=== PATIENT | female | born 1975 | race Caucasian/White ===

== ENCOUNTER 2017-04-29 13:13 | Observation (INO) | payer OTHER ==
[2017-04-29] MEDS ORDERED: NS 0.9% 1000 ML* 1,000 ML IV ONE (15:28)
[2017-04-29] MEDS ORDERED: Ondansetron INJ* 2 MG/ML VIAL IV ONE ×2 (15:28→19:16)
[2017-04-29] MEDS ORDERED: HYDROmorphone INJ* 1 MG/ML CARPUJECT SYRINGE IV ONE (15:28)
[2017-04-29 15:39] LABS: Hematocrit 40 % (35-47); Hemoglobin 13.3 g/dl (12.0-16.0); Mean Corpuscular HGB Conc 33 g/dl (31-36); Mean Corpuscular Hemoglobin 29 pg (27-31); Mean Corpuscular Volume 87 fL (80-97); Mean Platelet Volume 9 um3 (7.4-10.4); Red Blood Count 4.63 10^6/ul (4.0-5.4); Red Cell Distribution Width 19 % (10.5-15); White Blood Count 8.6 10^3/ul (3.5-10.8)
[2017-04-29 15:41] LABS: Urine Bilirubin Negative (Negative); Urine Glucose Negative (Negative); Urine Nitrite Negative (Negative)
[2017-04-29] MEDS ORDERED: HYDROmorphone INJ* 2 MG/ML CARPUJECT SYRINGE ONE (15:52)
[2017-04-29 15:54] LABS: Albumin 4.1 g/dL (3.2-5.2); BUN/Creatinine Ratio 16.9 (8-20); C Reactive Protein 3.38 mg/L (< 5.00); Calcium 9.8 mg/dL (8.6-10.3); EGFR African American 117.3 (>60); EGFR Non-African American 91.2 (>60); Globulin 2.9 g/dL (2-4); Potassium 3.6 mmol/L (3.5-5.0); Total Bilirubin 0.6 mg/dL (0.2-1.0)
--- NOTE | 2017-04-29 17:23 | RAD ---
CLINICAL HISTORY: Right flank pain. Relevant surgical history includes hysterectomy and Destini fundoplication. COMPARISON: MRI of the abdomen January 30, 2017 TECHNIQUE: Noncontrast CT examination of the abdomen and pelvis from the lung bases through the initial tuberosities. FINDINGS: VISUALIZED LUNG BASES: The visualized lung bases are grossly clear. There is no pleural effusion. ABDOMEN AND PELVIS: Evaluation of the solid organs and vasculature is limited without intravenous contrast. At the left lobe of the liver there is a 4.8 x 9.4 cm low-density mass that corresponds in location to the enhancing lesion seen on the previous MRI that measured 6.9 x 10 cm. In the right lobe of the liver there is a 4.4 x 3.3 cm mass corresponding to a lesion measuring 6.2 x 3.5 cm on the previous CT examination. In the left lobe of the liver there is a 4 mm hypodense focus corresponding to a fluid density cyst on the previous MRI. The liver is otherwise homogenous in attenuation and the surface is smooth. The spleen, pancreas and adrenal glands are grossly normal in appearance. The gallbladder is normal. The kidneys are normal in appearance without focal mass, calcification or signs of hydronephrosis. Evaluation of the gastrointestinal tract is limited without oral contrast. The appendix is likely identified in the right lower quadrant measuring just under 5 mm in diameter (sagittal image 58 and axial image 102). The small and large bowel are not distended. The gas and stool-filled colon does not exhibit any focal abnormalities. There is no gross retroperitoneal or mesenteric lymphadenopathy. Uterus is surgically absent. The abdominal aorta and iliac arteries are normal in course and diameter. There are no sinister bone lesions. IMPRESSION: 1. There are no renal calculi or signs of hydronephrosis. 2. Low-density metastases in the bilateral lobes of the liver are smaller when compared to the January 30, 2017 MRI of the abdomen.
[2017-04-29] MEDS ORDERED: fentaNYL* 50 MCG/ML 2 ML VIAL (100 MCG VIAL) IV SLOW PU ONE (17:42)
[2017-04-29] MEDS ORDERED: Iohexol 350* (CONTRAST) 500 ML MDV IV ONE (17:50)
--- NOTE | 2017-04-29 19:25 | RAD ---
INDICATION: Right flank pain COMPARISON: CT of the chest January 06, 2017 TECHNIQUE: Axial source images were acquired following the administration of intravenously and utilizing CT angiographic technique. Coronal and sagittal reconstructed images were constructed and reviewed. FINDINGS: There is a left internal jugular vein Mediport with the tip terminating at the right atrium. There is a nonobstructing thrombotic filling defect in the lateral basal segmental artery of the left lower lobe (axial image 85 of 220 and coronal image 54). The remaining pulmonary arterial branches are adequately patent. There are no focal infiltrates or effusions. There are no pulmonary parenchymal masses. The heart is normal in size. There is no evidence of pericardial effusion. There is no evidence of aortic aneurysm or dissection. There is no mediastinal, hilar, or axillary lymphadenopathy. The visualized osseous structures appear normal. Again seen are low-density lesions in the left and right lobe smaller when compared to the MRI of the abdomen dated January 30, 2017. IMPRESSION: 1. There is a small nonocclusive pulmonary embolus in the lateral basal segment of the left lower lobe pulmonary artery. 2. Additional chronic findings described in the body the report.
[2017-04-29] MEDS ORDERED: LORazepam INJ* 2 MG/ML 1 ML VIAL IV PUSH ONE (20:04)
--- NOTE | 2017-04-29 20:09 | ED ---
Amanda Hillman Rebecca, scribed for Nora Andujar MD on 04/29/17 at 1523 . Abdominal Pain/Female - HPI Summary HPI Summary: Pt is a 42 y/o F who presents to ED c/o right flank pain for 2 days. Pt had an MRI with contrast done in [place] at 1500 and pain began immediately after the MRI, worsening that night. Pain is currently moderate, ranked 4/10. Sx aggravated by deep breaths and movement, worsening the pain to 10/10, alleviated slightly by [place]. Denies dysuria. Pt currently has stage 4 liver and colon CA which was diagnosed on January 05 and she completed chemotherapy on April 04 and is scheduled to have surgery on May 26. PMHx kidney stones which was small and she did not have similar sx with that. Previously experienced similar pain after chemotherapy Tx which would resolve shortly with Tylenol. - History of Current Complaint Chief Complaint: EDFlankPain Stated Complaint: RT FLANK PAIN/CHEMO PT Time Seen by Provider: 04/29/17 15:09 Hx Obtained From: Patient Onset/Duration: Still Present Severity Currently: Moderate Pain Intensity: 4 Pain Scale Used: 0-10 Numeric Location: Flank - Right Aggravating Factor(s): Movement, Deep Breaths Alleviating Factor(s): Other: - [place] - slightly Associated Signs and Symptoms: Positive: Negative. Negative: Urinary Symptoms Allergies/Adverse Reactions: Allergies Allergy/AdvReac Type Severity Reaction Status Date / Time Nitrofurantoin Allergy Severe Palpitation Verified 01/30/17 12:12 [From Macrobid] s Topiramate [From Topamax] Allergy Severe Altered Verified 01/30/17 12:12 Mental Status Butorphanol [From Stadol] Allergy Intermediate Hallucinati Verified 01/30/17 12: 12 ons Cetirizine [From Zyrtec] Allergy Intermediate See Comment Verified 01/30/17 12: 12 Ketorolac Tromethamine Allergy Intermediate Difficulty Verified 01/30/17 12:12 [From Toradol] Breathing Oxycodone [From Percocet] Allergy Intermediate Difficulty Verified 01/30/17 12: 12 Breathing Acetaminophen [From Percocet] AdvReac Unknown See Comment Verified 01/30/17 12: 12 control Allergy Intermediate Difficulty Uncoded 01/30/17 12:12 Breathing PMH/Surg Hx/FS Hx/Imm Hx Cardiovascular History: Denies: Hx Pacemaker/ICD Sensory History: Denies: Hx Hearing Aid Psychiatric History: Denies: Hx Panic Disorder - Cancer History Cancer Type, Location and Year: Stage 4 Liver and Colon CA Hx Chemotherapy: Yes - Completed on April 04 - Surgical History Surgery Procedure, Year, and Place: [id number],2x c-sect,01/05/17-nadya findoplication w/biosyn suture-cleared by ,ganglion cyst r foot Infectious Disease History: No Infectious Disease History: Denies: Traveled Outside the [place] in Last 30 Days - Family History Known Family History: Positive: Hypertension, Other - NEGATIVE: Colon CA - Social History Lives: With Family Alcohol Use: None Substance Use Type: Reports: None Smoking Status (MU): Never Smoked Tobacco Review of Systems Negative: Fever Positive: flank pain - Right. Negative: dysuria All Other Systems Reviewed And Are Negative: Yes Physical Exam - Summary Physical Exam Summary: General: Well appearing, moderate pain distress Skin: Warm, Skin Color Reflects Adequate Perfusion, Dry Eyes: EOMI, [place] ENT: Pharynx normal, TMs normal Neck: Supple, nontender Respiratory: CTA, breath sounds present, no rhonchi, no wheezes, no rales Cardiovascular: RRR, no murmur, no rub, no gallop, Abdomen: Soft, nontender, Non-distended, no guarding, no rebound Bowel: Present Musculoskeletal: [place], No edema, CVA tenderness Neuro: Sensory/motor intact, A&Ox3, CN intact 2-12 Psych: Affect/mood appropriate Triage Information Reviewed: Yes Vital Signs On Initial Exam: Initial Vitals Temp Pulse Resp BP Pulse Ox 97.8 F 78 17 131/98 100 04/29/17 13:25 04/29/17 13:25 04/29/17 13:25 04/29/17 13:25 04/29/17 13:25 Vital Signs Reviewed: Yes Diagnostics - Vital Signs Vital Signs Temp Pulse Resp BP Pulse Ox 04/29/17 13:25 97.8 F 78 17 131/98 100 - Laboratory Lab Results: Lab Results 04/29/17 04/29/17 04/29/17 Range/Units 15:30 15:30 15:30 WBC 8.6 (3.5-10.8) 10^3/ul RBC 4.63 (4.0-5.4) 10^6/ul Hgb 13.3 (12.0-16.0) g/dl Hct 40 (35-47) % MCV 87 (80-97) fL MCH 29 (27-31) pg MCHC 33 (31-36) g/dl RDW 19 H (10.5-15) % Plt Count 167 (150-450) 10^3/ul MPV 9 (7.4-10.4) um3 Neut % (Auto) 64.0 (38-83) % Lymph % (Auto) 24.6 L (25-47) % [place] % (Auto) 8.4 (1-9) % Eos % (Auto) 2.6 (0-6) % Baso % (Auto) 0.4 (0-2) % Absolute Neuts (auto) 5.5 (1.5-7.7) 10^3/ul Absolute Lymphs (auto) 2.1 (1.0-4.8) 10^3/ul Absolute Monos (auto) 0.7 (0-0.8) 10^3/ul Absolute Eos (auto) 0.2 (0-0.6) 10^3/ul Absolute Basos (auto) 0 (0-0.2) 10^3/ul Absolute Nucleated RBC 0 10^3/ul Nucleated RBC % 0 Sodium 138 (133-145) mmol/L Potassium 3.6 (3.5-5.0) mmol/L Chloride 104 (101-111) mmol/L Carbon Dioxide 26 (22-32) mmol/L Anion Gap 8 (2-11) mmol/L BUN 12 (6-24) mg/dL Creatinine 0.71 (0.51-0.95) mg/dL Est GFR ( Amer) 117.3 (>60) Est GFR (Non-Af Amer) 91.2 (>60) BUN/Creatinine Ratio 16.9 (8-20) Glucose 93 (70-100) mg/dL Lactic Acid 1.1 (0.5-2.0) mmol/L Calcium 9.8 (8.6-10.3) mg/dL Total Bilirubin 0.60 (0.2-1.0) mg/dL AST 17 (13-39) U/L ALT 10 (7-52) U/L Alkaline Phosphatase 83 (34-104) U/L C-Reactive Protein 3.38 (< 5.00) mg/L Total Protein 7.0 (6.4-8.9) g/dL Albumin 4.1 (3.2-5.2) g/dL Globulin 2.9 (2-4) g/dL Albumin/Globulin Ratio 1.4 (1-3) Lipase 17 (11.0-82.0) U/L Urine Color Urine Appearance Urine pH (5-9) Ur Specific [place] (1.010-1.030) Urine Protein (Negative) Urine Ketones (Negative) Urine Blood (Negative) Urine Nitrate (Negative) Urine Bilirubin (Negative) Urine Urobilinogen (Negative) Ur Leukocyte Esterase (Negative) Urine Glucose (Negative) 04/29/17 Range/Units 15:30 WBC (3.5-10.8) 10^3/ul RBC (4.0-5.4) 10^6/ul Hgb (12.0-16.0) g/dl Hct (35-47) % MCV (80-97) fL MCH (27-31) pg MCHC (31-36) g/dl RDW (10.5-15) % Plt Count (150-450) 10^3/ul MPV (7.4-10.4) um3 Neut % (Auto) (38-83) % Lymph % (Auto) (25-47) % [place] % (Auto) (1-9) % Eos % (Auto) (0-6) % Baso % (Auto) (0-2) % Absolute Neuts (auto) (1.5-7.7) 10^3/ul Absolute Lymphs (auto) (1.0-4.8) 10^3/ul Absolute Monos (auto) (0-0.8) 10^3/ul Absolute Eos (auto) (0-0.6) 10^3/ul Absolute Basos (auto) (0-0.2) 10^3/ul Absolute Nucleated RBC 10^3/ul Nucleated RBC % Sodium (133-145) mmol/L Potassium (3.5-5.0) mmol/L Chloride (101-111) mmol/L Carbon Dioxide (22-32) mmol/L Anion Gap (2-11) mmol/L BUN (6-24) mg/dL Creatinine (0.51-0.95) mg/dL Est GFR ( Amer) (>60) Est GFR (Non-Af Amer) (>60) BUN/Creatinine Ratio (8-20) Glucose (70-100) mg/dL Lactic Acid (0.5-2.0) mmol/L Calcium (8.6-10.3) mg/dL Total Bilirubin (0.2-1.0) mg/dL AST (13-39) U/L ALT (7-52) U/L Alkaline Phosphatase (34-104) U/L C-Reactive Protein (< 5.00) mg/L Total Protein (6.4-8.9) g/dL Albumin (3.2-5.2) g/dL Globulin (2-4) g/dL Albumin/Globulin Ratio (1-3) Lipase (11.0-82.0) U/L Urine Color Straw Urine Appearance Clear Urine pH 8.0 (5-9) Ur Specific [place] 1.004 L (1.010-1.030) Urine Protein Negative (Negative) Urine Ketones Negative (Negative) Urine Blood Negative (Negative) Urine Nitrate Negative (Negative) Urine Bilirubin Negative (Negative) Urine Urobilinogen Negative (Negative) Ur Leukocyte Esterase Negative (Negative) Urine Glucose Negative (Negative) Result Diagrams: 04/29/17 15:30 04/29/17 15:30 Lab Statement: Any lab studies that have been ordered have been reviewed, and results considered in the medical decision making process. - CT CT Abd/Pel CT Interpretation: No Acute Changes - 1. There are no renal calculi or signs of hydronephrosis. 2. Low-density metastases in the bilateral lobes of the liver are smaller when compared to the January 30, 2017 MRI of the abdomen. ED physician reviewed radiology report and agrees. CT Interpretation Completed By: Radiologist Chest/Thorax CTA CT Interpretation: Positive (See Comments) - 1. There is a small nonocclusive pulmonary embolus in the lateral basal segment of the left lower lobe pulmonary artery. 2. Additional chronic findings described in the body the report. ED physician reviewed radiology report and agrees. CT Interpretation Completed By: Radiologist Re-Evaluation - Re-Evaluation First Eval Re-Evaluation Time: 19:43 Comment: Still in pain and nauseous because she has not eaten today. Second Eval Re-Evaluation Time: 20:02 Comment: Discussed her pain and discussed her clot and given that the pain is difficult to resolve, she decided she would come in. Abdominal Pain Fem Course/Dx - Course Course Of Treatment: 42 yo female with stage 4 liver and colon ca with right flank pain. ct abd/pelvis were neg and cta of chest showed pulmonary embolus on the left, which does not explain her pain. her pain has been difficult to manage. Plan is for her to be admitted and started on lovenox with pain mgmt over night and home on lovenox because she is nearing her date for surgery for the cancer. case discussed with Drs. Flores and Keo for admission - Diagnoses Provider Diagnoses: Pulmonary embolus, Right flank pain - Provider Notifications Discussed Care Of Patient With: Yobani Crowley Time Discussed With Above Provider: 19:52 Instructed by Provider To: Other - Accepts pt for admission. Discussed care of pt with Dr. Vasyl Flores at 1956 who advised Lovenox. Discharge - Discharge Plan Condition: Stable Disposition: ADMITTED TO [facility] Referrals: Rich CARDONA,Davey Reyes [Primary Care Provider] - The documentation as recorded by the Amanda hearn Rebecca accurately reflects the service I personally performed and the decisions made by me, Nora Andujar MD.
[2017-04-29] MEDS ORDERED: HYDROmorphone INJ* 2 MG/ML CARPUJECT SYRINGE IV SLOW PU PRN (20:53)
[2017-04-29] MEDS ORDERED: LORazepam TAB(*) 0.5 MG PO PRN (21:02)
[2017-04-29] MEDS: Enoxaparin(*) 80 MG/0.8 ML SYR SUBCUT SCH (22:32)
--- NOTE | 2017-04-29 22:42 | HP ---
CC: Dr. Villanueva* [facility] MEDICINE HISTORY AND PHYSICAL: DATE OF ADMISSION: 04/29/17 PRIMARY CARE PHYSICIAN: Dr. Villanueva. ATTENDING PHYSICIAN: Yobani Crowley MD* (dictation provided by Micki Hamm NP) CHIEF COMPLAINT: Right upper quadrant pain. HISTORY OF PRESENT ILLNESS: Ms. Garcia is a 42-year-old female with a past medical history of recent diagnosis this year of primary colon cancer with significant metastases to the liver, currently on chemotherapy under the direction of Dr. Flores's team, who presents today to the hospital with concern for right upper quadrant pain. Ms. Garcia states that she has had ongoing intermittent right upper quadrant pain since the diagnosis of her liver tumors; however, typically it is reasonably controlled. She went to [place] on to have MRI with contrast to evaluate in preparation for surgery, which is planned there next month for resection of liver tumors. She states that immediately on returning home she had a much more severe right upper quadrant pain. She took [place] last night and was able to sleep; however, this afternoon when she was getting ready to take her children to the park she had the sudden onset of a stabbing knife like pain in the right side that was quite severe. She called Dr. Flores's office and they recommended that she take another [place] and then come to the emergency room for evaluation. She denies any fever, chest pain, shortness of breath, cough. She has had no nausea, vomiting, diarrhea. In the emergency room, Ms. Garcia had labs, which were unremarkable. Her vitals were stable. She went on for an abdomen and pelvis CT, which showed no change from previous and chest thorax CTA, which did confirm a non-occlusive pulmonary embolism, but on the left side. She is satting well on room air. Her vitals are stable. PAST MEDICAL HISTORY: 1. History of colon cancer with metastasis to the liver. 2. GERD. 3. Colon cancer. 4. Chronic fatigue. 5. Interstitial cystitis. 6. History of with history of hysterectomy. MEDICATIONS: 1. Butalbital/acetaminophen/caffeine 1 cap p.o. daily p.r.n. 2. Cyclobenzaprine 10 mg p.o. b.i.d. p.r.n. 3. Dramamine 50 mg p.o. daily p.r.n. 4. Fluticasone nasal spray 2 sprays both nares daily p.r.n. 5. Hydrocodone with acetaminophen 5/325, 1 tab p.o. q.4 hours p.r.n. 6. Omeprazole 40 mg p.o. b.i.d. 7. Ranitidine 300 mg p.o. daily. 8. Potassium b.i.d. (unknown strength). ALLERGIES: NITROFURANTOIN, TOPIRAMATE, BUTORPHANOL, CETIRIZINE, KETOROLAC, OXYCODONE, ACETAMINOPHEN, CONTROL. FAMILY HISTORY: The patient reports that her mom and dad are alive and well. Her father's mother had diabetes and both of her grandmothers had breast cancer. SOCIAL HISTORY: The patient denies alcohol, tobacco or drug use. She lives with her significant other who is the healthcare proxy. REVIEW OF SYSTEMS: A 14-point review of systems was completed with Ms. Garcia and all those not mentioned above were negative. PHYSICAL EXAMINATION GENERAL: Ms. Garcia is lying in the bed. She is in no acute distress. VITAL SIGNS: Temperature 97.8, pulse rate 80, respiratory rate 18, O2 saturation 100% on room air, blood pressure 132/88. HEART: S1, S2. No murmur, rub, or gallop, and regular ABDOMEN: Soft. There is some tenderness in the right upper quadrant. There is bowel sounds positive x4. There is no rebound or guarding. EXTREMITIES: No cyanosis or edema. NEURO: She is alert, she is oriented x3. She moves all extremities equally. There is no facial asymmetry or focal weakness. Extraocular movements are intact. SKIN: Intact. DIAGNOSTIC STUDIES/LAB DATA: WBC 8.6, hemoglobin 13.3 hematocrit of 40, platelet count 167,000. Sodium 138, potassium 3.6, chloride 104, serum bicarbonate 26, BUN 12, creatinine 0.71, glucose 93, lactic acid 1.1, CRP 3.38. Urine shows no evidence of infection. Abdomen and pelvis CT is read as follows; "there are no renal calculi or signs of hydronephrosis. Low density metastases in the bilateral lobes of the liver are smaller when compared to 01/30/17 MRI of the abdomen. Chest thorax CTA shows the following; "there is a small non-occlusive pulmonary embolus in the lateral basal segment of the left lower lobe pulmonary artery." ASSESSMENT: Ms. Garcia is a 42-year-old female with past medical history of recent diagnosis of primary colon cancer with large metastases to the liver as well as gastroesophageal reflux disease who presents today to the hospital with concern for severe right upper quadrant pain. She has been found to have a non- occlusive left- sided pulmonary embolism. Our plans are for observation in the hospital for the followin. Right upper quadrant pain. The patient is comfortable now, but she states that she does have continued pain with breathing in or moving around. Plan to continue Dilaudid p.r.n. and we will adjust that medication regimen as needed based on her response. This pain is entirely consistent with her history of metastatic tumors to the liver. Plan for pain control as she awaits surgery in a month. 2. Pulmonary embolism: Plan to treat with full dose strength Lovenox b.i.d. 3. Gastroesophageal reflux disease: Plan to continue omeprazole and Zantac. 4. DVT prophylaxis with Lovenox. 5. Code status is full code. TIME SPENT: Approximately 60 minutes was spent on the admission of this patient ; more than half of the time was spent with the patient at the bedside reviewing the events leading up to this hospitalization, performing the physical examination, and reviewing my plan of care. MICKI HAMM NP [id number]/[facility] #: [id number] BRIAN
[2017-04-29] MEDS: Ondansetron INJ* 2 MG/ML VIAL IV PRN (22:52)
[2017-04-29] MEDS: HYDROcodone/ACETAMIN 5-325 MG* 1 TAB PO PRN (22:52)
[2017-04-30] MEDS: HYDROcodone/ACETAMIN 5-325 MG* 1 TAB PO PRN (05:35)
[2017-04-30] MEDS: Enoxaparin(*) 80 MG/0.8 ML SYR SUBCUT SCH (08:35)
[2017-04-30] MEDS ORDERED: Famotidine TAB* 20 MG PO SCH (09:00)
[2017-04-30] MEDS ORDERED: Omeprazole CAP* 20 MG PO SCH (09:00)
[2017-04-30] MEDS: Ondansetron INJ* 2 MG/ML VIAL IV PRN ×2 (09:55→14:49)
[2017-04-30] MEDS ORDERED: fentaNYL PATCH 25 MCG/HR TRANSDERM SCH (10:00)
[2017-04-30] MEDS: oxyCODONE TAB* 5 MG TAB PO PRN ×2 (10:13→16:33)
[2017-04-30 15:39] VITALS: BP 118/77
[2017-04-30] MEDS ORDERED: Enoxaparin(*) 80 MG/0.8 ML SYR SUBCUT ONE (16:00)
[2017-04-30] MEDS ORDERED: Scopolamine 1.5 mg* PATCH TRANSDERM SCH (16:00)
[2017-04-30] MEDS ORDERED: fentaNYL Patch Check Q Shift 1 NOTE SCH (19:00)
--- NOTE | 2017-05-01 03:32 | DS ---
CC: Dr. Villanueva; Dr. Abdul; Dr. Young* DISCHARGE SUMMARY: DATE OF ADMISSION: 04/29/17 DATE OF DISCHARGE: 04/30/17 PRIMARY CARE PROVIDER: Dr. Villanueva. PRIMARY ONCOLOGIST: Dr. Abdul. ADDITIONAL ONCOLOGIST: Dr. Young with [facility]. DISCHARGING PROVIDER: REBECCA Thomas SUPERVISING PHYSICIAN: Ashley Maza MD* (dictated by REBECCA Thomas). PRIMARY DISCHARGE DIAGNOSES: 1. Right upper quadrant abdominal pain with no liver metastasis. 2. Nonocclusive pulmonary embolus of the left lower lobe. SECONDARY DISCHARGE DIAGNOSIS: Metastatic colorectal cancer with liver metastasis. DISCHARGE MEDICATIONS: 1. Fioricet 1 capsule p.o. daily as needed for migraine headache. 2. Flexeril 10 mg p.o. twice daily as needed for pain. 3. Dramamine 50 mg p.o. daily as needed for nausea. 4. Lovenox 120 mg subcu daily. 5. Fluticasone nasal spray 2 sprays in both nostrils daily as needed. 6. Omeprazole 40 mg p.o. twice daily. 7. Ranitidine 300 mg p.o. daily. 8. Fentanyl patch 25 mcg transdermal applied 72 hours. 9. Oxycodone 5 mg p.o. q.4 hours as needed for pain. Medication changes: 1. Stop [place]. 2. Start oxycodone. 3. Start fentanyl patch. 4. Start Lovenox. HOSPITAL IMAGING: CT of the abdomen and pelvis demonstrates low density metastasis in the bilateral lobes of the liver, which are smaller when compared to last study from January 2017. CTA of the chest shows a small nonocclusive pulmonary embolus in the lateral basal segment of the left lower lobe pulmonary artery. HOSPITAL COURSE: This is a 42-year-old female with metastatic colorectal cancer , who presented to the emergency department with complaints of right upper quadrant abdominal pain. The patient has had similar pain in the past with no liver metastasis from her colorectal cancer. She states that her pain had actually nearly resolved or at least was under good control up until earlier this week at which point, she had a contrasted MRI and states that several hours after the MRI, she began having right upper quadrant abdominal pain. The patient took prescribed [place] at home, but her pain got to the point that it was unmanageable and she was recommended to present to the emergency department for further evaluation. Initial labs showed normal CBC with a white blood cell count of 8600, hemoglobin 13.3, and a platelet count of 167,000. Comprehensive metabolic panel was unremarkable. Urinalysis was within normal limits. Imaging of her abdomen showed previously known metastasis, which actually looked slightly better when compared to last study from January, but no new acute pathology. A CTA of her chest was completed, which showed a nonocclusive pulmonary embolus on the left side, which is opposite from her acute pain. The patient was subsequently admitted for pain management and treatment of her pulmonary embolus. She was started on Lovenox for her pulmonary embolus and received IV opiates for pain control. On the day of discharge, the patient was started on a fentanyl patch, which she states had been effective in the past for pain control and reported good relief from p.r.n. oxycodone for additional breakthrough pain. Discussed need for anticoagulation surrounding pulmonary embolus. Discussed with patient that this was likely an incidental finding, but certainly requires treatment. After discussing anticoagulation options, the patient elected to continue with Lovenox and this will be prescribed in a dose of 1.5 mg/kg daily for ease of use as supposed to twice daily dosing options. DISPOSITION AND FOLLOWUP PLAN: The patient is being discharged to home with medication changes as outlined above. She is encouraged to contact the office of Dr. Abdul tomorrow to request a followup this week regarding her hospitalization. The patient will require anticoagulation for 3 to 6 months at which point, appropriateness for discontinuing anticoagulation can be assessed. TIME SPENT: Greater than 30 minutes were spent on this discharge. REBECCA THOMAS [id number]/[facility] #: [id number] BRIAN
== END 2017-04-30 16:40 | disposition home or self-care (01) ==
LOC: ED 13:13 → MEDTELE 20:49 → MED 22:16
PROVIDERS: ADMIT Internal Medicine; ATTEND Internal Medicine
DX: R10.11 Right upper quadrant pain (principal); I26.99 Other pulmonary embolism without acute cor pulmonale; C78.7 Secondary malignant neoplasm of liver and intrahepatic bile duct; C18.9 Malignant neoplasm of colon, unspecified; K21.9 Gastro-esophageal reflux disease without esophagitis; N30.10 Interstitial cystitis (chronic) without hematuria; Z79.899 Other long term (current) drug therapy; Z88.8 Allergy status to other drugs, medicaments and biological substances
CPT/HCPCS: 36415; 71275; 74176; 80053; 81003; 83605; 83690; 85025; 86140; 96372; 96374; 96375; 96376; 99285; A9270-GY; G0378; J1170; J1650; J2060; J2405; J3010; Q9967

== ENCOUNTER → 2017-05-17 09:10 | Day surgery (SDC) | payer MEDICAID, OTHER ==
[~2017-05-17 09:10] MED LIST: Clindamycin 900 MG IVPREMIX(* 900 MG/50 ML SDV IV ONE; Flumazenil* 0.1 MG/ML 5 ML MDV ONE; Heparin 2 UNITS/ML IVPREMIX* 1,000 ML IV ONE; Iohexol 350 (CONTRAST) 200 ML MDV IV ONE; LORazepam TAB(*) 1 MG ONE; Lidocaine 1% INJ* 10 MG/ML 30 ML SDV ONE; Midazolam* 1 MG/ML 5 ML VIAL (5 MG) ONE; Naloxone* 0.4 MG/ML 1 ML VIAL ONE; Scopolamine 1.5 mg* PATCH ONE; fentaNYL* 50 MCG/ML 2 ML VIAL (100 MCG VIAL) ONE
--- NOTE | 2017-05-17 19:06 | RAD ---
CPT II Codes: 6045F Procedures performed: 1. Diagnostic inferior vena cavogram. 2. Placement of an infrarenal retrievable IVC filter. Date of service: May 17 2017 Indication for procedure: Presurgical placement in a woman with metastatic colon cancer scheduled to undergo partial hepatectomy with a history of pulmonary embolus. Comparison: CT abdomen pelvis May 11, 2017 Contrast: 60 mL Omnipaque 300 Fluoroscopy Time: 4.3 minutes Vessels Accessed: Percutaneous access was obtained with ultrasound guidance in the right common femoral vein in the antegrade direction. Catheter venography was performed in the Inferior Vena Cava before and after filter deployment. Anesthesia: Conscious sedation with IV Fentanyl and Versed as well as local 1% lidocaine injected locally at the venotomy site. Conscious sedation time: Timeout: 1305 hours Case end: 1332 hours Total conscious sedation time: 27 minutes Additional medications: The patient received 1 mg of p.o. Ativan prior to the onset of the procedure. Procedure narration and imaging findings: Prior to the procedure the risk, benefits and alternative therapies were carefully explained and informed consent was obtained from the patient. The patient was appropriately positioned on the table in the angiography suite. A formal time out was performed and all members of the team and the patient agreed to the patient, procedure and laterality. Preliminary ultrasound indicated a patent right common femoral vein. The skin overlying the right common femoral vein was prepped and draped in standard sterile fashion. Sterile precautions were employed including use of cap, mask, gown and sterile gloves. The skin overlying the femoral vein was anesthetized with 1% lidocaine. Real time ultrasound imaging shows the femoral vein is patent and determined to be adequate for IVC filter placement. Utilizing real time ultrasound visualization the femoral vein was accessed with an 18 gauge needle. An image was recorded and saved confirming appropriate intraluminal position of the needle tip. Blood return further confirmed position. Under fluoroscopic control a 0.035" wire was advanced to the lower cavoatrial junction. The needle was removed, exchanged for the [employer] Option Elite sheath. The wire was removed and power injector venogram was performed demonstrating a patent IVC and the lower right renal vein at approximately the L1/L2 vertebral body level. There is no duplicated IVC or large anomalous veins identified that would contraindicate single IVC filter placement. The wire was re-inserted. Over the wire the filter deployment sheath was advanced to the infrarenal IVC and the filter was then deployed under fluoroscopic control with the superior tissue anchors at the L3 level. Contrast venography through the sheath again demonstrated patency of the IVC, no extravasation and satisfactory alignment of the filter. The sheath was then removed and direct pressure was held on the common femoral vein access site for 10 minutes. The site was dressed with sterile gauze and the patient left the angiography suite in stable condition. SUMMARY OF PROCEDURE, IMAGING FINDINGS AND INTERVENTIONS PERFORMED: 1. Diagnostic studies performed: * Venous access was obtained at the right common femoral vein in the antegrade direction (i.e. towards the heart) with ultrasound guidance. A sonographic image was recorded. *Diagnostic catheter inferior vena cavography (necessary for precise IVC filter deployment) was performed with the flush catheter tip in the inferior-most IVC. 2. Interpretation of diagnostic studies performed: The IVC is free of gross thrombus and normal in size and morphology. 3. Surgical interventions performed: Appropriate placement of an [employer] Option Elite IVC Filter. 4. Interpretation of interventions performed: * Final inferior vena cavogram demonstrated an appropriately positioned IVC filter with the tissue anchors approximately at the L3 level. * There is no venographic evidence of laceration or extravasation. PLAN: 1. WHEN IT IS SAFE TO DO SO RESTARTING ANTICOAGULATION THERAPY IS STRONGLY RECOMMENDED. AT THE CONCLUSION OF THE PROCEDURE THE PATIENT WAS ADVISED TO CONTINUE HER LOVENOX. 2. WHEN THE IVC FILTER IS NO LONGER INDICATED (I.E. ANTICOAGULATION CAN BE SAFELY RESTARTED), IT IS STRONGLY RECOMMENDED THE PATIENT RETURN TO INTERVENTIONAL RADIOLOGY TO HAVE THE FILTER REMOVED. THIS WAS CAREFULLY DISCUSSED WITH THE PATIENT AND HER BEFORE AND AFTER FILTER PLACEMENT. TO SCHEDULE IVC FILTER REMOVAL AN OUTPATIENT PLEASE CALL THE INTERVENTIONAL RADIOLOGY CLINIC AT .
== END | disposition home or self-care (01) ==
LOC: CHICATH 09:10
PROVIDERS: ATTEND Radiology Diagnostic Radiology
DX: C18.9 Malignant neoplasm of colon, unspecified (principal); C19 Malignant neoplasm of rectosigmoid junction; I26.99 Other pulmonary embolism without acute cor pulmonale; Z79.01 Long term (current) use of anticoagulants
CPT/HCPCS: 37191; 76937; 99156; 99157; A9270-GY; C1769; J1644; J2001; J2250; J2310; J3010

== ENCOUNTER 2017-11-27 13:09 | Inpatient (IN) | payer OTHER ==
[2017-11-27] MEDS ORDERED: LORazepam INJ* 2 MG/ML 1 ML VIAL IV PUSH PRN (13:15)
[2017-11-27] MEDS ORDERED: Ondansetron INJ* 2 MG/ML VIAL IV PRN (13:15)
[2017-11-27] MEDS ORDERED: Cyclobenzaprine TAB* 10 MG PO PRN (13:21)
[2017-11-27] MEDS ORDERED: Fluticasone NASAL SPRAY 50MCG* 16 gm SPRAY BTL BOTH NARES PRN (13:21)
[2017-11-27] MEDS ORDERED: Hyoscyamine TAB* 0.125 MG PO PRN (13:21)
[2017-11-27] MEDS ORDERED: LORazepam TAB(*) 1 MG PO PRN (13:21)
[2017-11-27] MEDS ORDERED: Calcium Carbonate CHEW TAB* 500 MG (TUMS) PO PRN (13:23)
[2017-11-27] MEDS: Fondaparinux* 7.5 MG/0.6 ML SYRINGE SUBCUT SCH (16:03)
[2017-11-27] MEDS ORDERED: Iohexol 300* (CONTRAST) 10 ML SDV IV ONE (17:09)
--- NOTE | 2017-11-27 18:17 | RAD ---
INDICATION: Acute liver failure. Rectosigmoid junction colon carcinoma. COMPARISON: May 11, 2017 CT abdomen pelvis and April 29, 2017 CT chest. TECHNIQUE: Multidetector CT images were obtained from the lung apices to the ischial tuberosities with 95 mL Omnipaque 300 IV contrast. Oral contrast administered. CHEST REPORT: Clear lungs and pleural spaces. Negative for thoracic lymphadenopathy, cardiomegaly, pericardial effusion. Negative for suspicious thoracic osseous lesions. CHEST IMPRESSION: No evidence for thoracic metastatic disease. ABDOMEN PELVIS REPORT: Postsurgical change of LEFT lateral hepatic segment resection and resection of a focal lesion at the RIGHT posterior hepatic segment with 5.2 x 5.9 x 5.1 cm probable postoperative seroma at the RIGHT hepatic lobe resection site. Interval development of innumerable (approximate 30 with some lesions coalescent with adjacent lesions) moderately well-circumscribed hypodense but denser than water hepatic lesions most suspicious for metastasis given the clinical context. Negative for biliary dilatation. Post cholecystectomy. Unremarkable pancreas and spleen. Negative for CT abnormality of the upper GI, small bowel, or appendix. Rectosigmoid colon bowel anastomosis without suspicious finding. Moderately large volume of stool present throughout the colon. Negative for ascites or free air. Normal adrenal glands. Unremarkable kidneys with symmetric nephrograms and pyelograms. Negative for ureteral dilatation. Unremarkable partially distended urinary bladder. Post hysterectomy. Unremarkable adnexal regions. Negative for lymphadenopathy. Unremarkable abdominal aorta and iliac arteries. IVC filter in place. Negative for suspicious osseous lesions. Edema at the lower abdominal wall with multiple foci of subcutaneous emphysema likely reflecting pharmaceutical injections. ABDOMEN PELVIS IMPRESSION: 1. Interval development of innumerable moderately well-circumscribed hypodense but denser than water hepatic lesions most suspicious for metastasis given the clinical context. If pathologic confirmation is needed consider targeted liver ultrasound to assess for feasibility of ultrasound-guided fine-needle aspiration. 2. Negative for lymphadenopathy. 3. Rectosigmoid colon bowel anastomosis without suspicious finding.
--- NOTE | 2017-11-27 18:40 | PN ---
Progress Note - Progress Note Date of Service: 11/27/17 SOAP: Patient seen and examined. Reviewed results of CT scan and CEA. Consistent with recurrent cancer. Disease is non operable and therapy will be palliative chemotherapy. If cancer responds to treatment can do well for some time. If cancer does not respond will become ill quickly. I suspect acute cause of decompensation in addition to recurrent disease. Goal will be to improve symptoms and re-start FOLFIRI, followed by additon of Avastin once 6 weeks from surgery. Will discuss case with Jesica. PE: No distress, HEENT sclera icterus, Abd healing from surgery, lovenox inj sites, no RUQ tenderness
[2017-11-27] MEDS: Ibuprofen TAB* 600 MG PO PRN (20:45)
[2017-11-28] MEDS: Ibuprofen TAB* 600 MG PO PRN ×3 (04:15→22:04)
[2017-11-28 04:17] LABS: ABS Basophils 0.1 10^3/ul (0-0.2); ABS Eosinophils 0.6 10^3/ul (0-0.6); ABS Lymphocytes 1.2 10^3/ul (1.0-4.8); ABS Monocytes 1.1 10^3/ul (0-0.8); ABS Neutrophils 5.9 10^3/ul (1.5-7.7); ABS Nucleated RBC 0 10^3/ul; Eosinophil % 7.4 % (0-6); Hematocrit 39 % (35-47); Hemoglobin 12.9 g/dl (12.0-16.0); Lymphocyte % 13.6 % (25-47); Mean Corpuscular HGB Conc 33 g/dl (31-36); Mean Corpuscular Hemoglobin 31 pg (27-31); Mean Corpuscular Volume 93 fL (80-97); Mean Platelet Volume 9.1 um3 (7.4-10.4); Nucleated Red Blood Cells % 0; Platelet Count 142 10^3/ul (150-450); Red Blood Count 4.16 10^6/ul (4.0-5.4); Red Cell Distribution Width 14 % (10.5-15); White Blood Count 8.8 10^3/ul (3.5-10.8)
[2017-11-28 04:36] LABS: EGFR Non-African American 92.7 (>60)
[2017-11-28] MEDS: Famotidine TAB* 20 MG PO SCH (08:12)
[2017-11-28] MEDS: Potassium Chlor TAB* 20 MEQ TAB.ER PO SCH (08:12)
[2017-11-28] MEDS: Pantoprazole IV* 40 MG IV SCH (08:13)
[2017-11-28] MEDS ORDERED: NS 0.9% 1000 ML* 1,000 ML IV SCH (08:45)
[2017-11-28] MEDS: Ondansetron ODT TAB* 4 MG PO PRN ×2 (14:46→20:01)
[2017-11-28] MEDS: Fondaparinux* 7.5 MG/0.6 ML SYRINGE SUBCUT SCH (15:48)
--- NOTE | 2017-11-28 16:02 | RAD ---
Indication: Rising bilirubin. Image Sequences: Axial T2 fat sat, coronal T2, and 3-D MRCP images of the biliary system was performed. Correlation is made with CT dated November 27, 2017. There are dilated ducts in the right hepatic lobe. There appears to be abrupt termination of the right hepatic duct just as it becomes the common bile duct. There is a mass likely causing extrinsic compression of the duct measuring approximately 5.7 cm. There are multiple other hepatic lesions noted in the dome of the right lobe of the liver measuring up to 2 cm. Right lobe liver lesion measures up to 14 mm. Necrotic mass with fluid is noted in the right lobe of the liver measuring 4.8 cm. The distal common bile duct is otherwise unremarkable. The pancreatic duct is unremarkable. IMPRESSION: There is abrupt termination of the right hepatic duct at the confluence of the left and right hepatic duct junction. There appears to be ill-defined slightly hyperintense mass measuring up to 5.7 cm which appears to be causing extrinsic compression of the duct at this level. The distal common bile duct is patent. Pancreatic duct is unremarkable. Innumerable other hepatic lesions are noted consistent with metastatic disease.
--- NOTE | 2017-11-28 17:46 | PN ---
Progress Note - Progress Note Date of Service: 11/28/17 SOAP: Subjective: [Nausea/vomiting improved. No abd pain. MRCP reviewed this evening which demonstrates biliary obstruction at the level of the confluence of the R and L hepatic ducts.] Objective: [ Vital Signs Temp Pulse Resp BP Pulse Ox 98.2 F 70 19 104/58 99 11/28/17 15:44 11/28/17 15:44 11/28/17 15:44 11/28/17 15:44 11/28/17 15:44 Laboratory Results - last 24 hr 11/28/17 11/28/17 04:10 04:10 WBC 8.8 RBC 4.16 Hgb 12.9 Hct 39 MCV 93 MCH 31 MCHC 33 RDW 14 Plt Count 142 L MPV 9.1 Neut % (Auto) 66.3 Lymph % (Auto) 13.6 L [place] % (Auto) 12.1 H Eos % (Auto) 7.4 H Baso % (Auto) 0.6 Absolute Neuts (auto) 5.9 Absolute Lymphs (auto) 1.2 Absolute Monos (auto) 1.1 H Absolute Eos (auto) 0.6 Absolute Basos (auto) 0.1 Absolute Nucleated RBC 0 Nucleated RBC % 0 Sodium 137 L Potassium 3.9 Chloride 102 Carbon Dioxide 27 Anion Gap 8 BUN 8 Creatinine 0.70 Est GFR ( Amer) 119.2 Est GFR (Non-Af Amer) 92.7 BUN/Creatinine Ratio 11.4 Glucose 109 H Calcium 9.6 Total Bilirubin 7.20 H D Direct Bilirubin 5.20 H Indirect Bilirubin 2.0 H AST 264 H ALT 338 H Alkaline Phosphatase 693 H Total Protein 6.4 Albumin 3.8 Globulin 2.6 Albumin/Globulin Ratio 1.5 Calcium Carbonate (Tums*) 500 mg PO Q4H PRN PRN Reason: reflux Cyclobenzaprine HCl (Flexeril Tab*) 10 mg PO BID PRN PRN Reason: SPASMS - BACK Famotidine (Pepcid Tab*) 40 mg PO DAILY HANSA PRN Reason: Protocol Last Admin: 11/28/17 08:12 Dose: 40 mg Fluticasone Propionate (Flonase Nasal [place] 50mcg*) 2 spray BOTH NARES DAILY PRN PRN Reason: Allergy Symptoms Fondaparinux (Arixtra*) 7.5 mg SUBCUT 1500 HANSA Last Admin: 11/28/17 15:48 Dose: 7.5 mg Heparin Sodium (Porcine) (Heparin Flush Port (Ivad)) 5 ml FLUSH DAILY [facility] PRN Reason: Protocol Last Admin: 11/28/17 08:12 Dose: 5 ml Hyoscyamine (Anaspaz Tab*) 0.125 mg PO Q6HR PRN PRN Reason: DYSPEPSIA Ibuprofen (Motrin Tab*) 600 mg PO Q6H PRN PRN Reason: PAIN/FEVER Last Admin: 11/28/17 11:29 Dose: 600 mg Lorazepam (Ativan Inj*) 0.5 mg IV PUSH Q4H PRN PRN Reason: Anxiety/nausea Lorazepam (Ativan Tab(*)) 1 mg PO Q12HR PRN PRN Reason: ANXIETY Metoclopramide HCl (Reglan Iv*) 10 mg IV Q6H PRN PRN Reason: NAUSEA/VOMITING Ondansetron HCl (Zofran Inj*) 4 mg IV Q4H PRN PRN Reason: nausea Ondansetron HCl (Zofran Odt Tab*) 4 mg PO Q6H PRN PRN Reason: NAUSEA Last Admin: 11/28/17 14:46 Dose: 4 mg Pantoprazole Sodium (Protonix Iv*) 40 mg IV DAILY [facility] Last Admin: 11/28/17 08:13 Dose: 40 mg Potassium Chloride (Klor Con Er Tab*) 20 meq PO DAILY [facility] Last Admin: 11/28/17 08:12 Dose: 20 meq Exam: Gen: 42 yo female accompanied by multiple family members HEENT: NCAT, scleral icterus CV: RRR, no m/r/g Resp: lungs CTA, no w/c/r Abd: soft, nonTTP Ext: no edema Skin: jaundice] Assessment: [42 yo female with metastatic CRC who recently completed primary tumor resection at [facility] with c/o n/v and evidence of liver failure. CT demonstrated multiple new liver lesions and MRCP confirms obstruction of the R hepatic duct. ] Plan: [1. Biliary obstruction - briefly discussed case with Dr Gifford regarding ERCP who suggested patient would benefit from transfer - patient has had her care at [facility] and does not wish to be transferred to another facility - will plan to repeat labs in am, if stable can work to urgent arrange ERCP as an outpatient basis at [facility] 2. Metastatic CRC - prior resection of solitary liver met and recent resection and reanastomosis of primary colon lesion at [facility] - evidence of multiple new liver lesions not appreciated on recent imaging - plan to resume chemotherapy following biliary stenting ]
[2017-11-28] MEDS: Metoclopramide IV* 5 MG/ML 2 ML VIAL IV PRN (21:56)
[2017-11-29 05:58] LABS: ABS Basophils 0 10^3/ul (0-0.2); ABS Eosinophils 0.6 10^3/ul (0-0.6); ABS Lymphocytes 1.1 10^3/ul (1.0-4.8); ABS Monocytes 0.7 10^3/ul (0-0.8); ABS Neutrophils 3.7 10^3/ul (1.5-7.7); ABS Nucleated RBC 0 10^3/ul; Eosinophil % 9.9 % (0-6); Hematocrit 37 % (35-47); Hemoglobin 12.3 g/dl (12.0-16.0); Lymphocyte % 17.8 % (25-47); Mean Corpuscular HGB Conc 34 g/dl (31-36); Mean Corpuscular Hemoglobin 32 pg (27-31); Mean Corpuscular Volume 93 fL (80-97); Mean Platelet Volume 9.3 um3 (7.4-10.4); Nucleated Red Blood Cells % 0; Platelet Count 112 10^3/ul (150-450); Red Blood Count 3.91 10^6/ul (4.0-5.4); Red Cell Distribution Width 14 % (10.5-15); White Blood Count 6.2 10^3/ul (3.5-10.8)
[2017-11-29 06:14] LABS: EGFR Non-African American 104.7 (>60)
[2017-11-29 07:45] VITALS: BP 103/59
[2017-11-29] MEDS: Pantoprazole IV* 40 MG IV SCH (08:50)
[2017-11-29] MEDS: Metoclopramide IV* 5 MG/ML 2 ML VIAL IV PRN (08:50)
[2017-11-29] MEDS: Potassium Chlor TAB* 20 MEQ TAB.ER PO SCH (08:55)
[2017-11-29] MEDS: Famotidine TAB* 20 MG PO SCH (08:55)
--- NOTE | 2017-11-30 08:35 | DS ---
CC: Dr. Young * DISCHARGE SUMMARY: DATE OF ADMISSION: 11/27/17 DATE OF DISCHARGE: 11/29/17 PRIMARY ONCOLOGIST AND ATTENDING PHYSICIAN: Geovany Abdul MD * (DICTATED BY REBECCA THOMAS) DISCHARGING PROVIDER: REBECCA Thomas PRIMARY DISCHARGE DIAGNOSES: 1. Biliary obstruction secondary to hepatic mass. 2. Metastatic colorectal cancer, status post pyloric tumor resection with reanastomosis now with evidence of new liver metastasis. DISCHARGE MEDICATIONS: 1. Flexeril 10 mg p.o. twice daily as needed for muscle spasm. 2. Flonase 2 sprays both nostrils daily as needed for congestion. 3. Arixtra 7.5 mg subcu daily. 4. Hyoscyamine 0.125 mg p.o. q.6 hours as needed for abdominal cramping. 5. Lorazepam 1 mg p.o. q.12 hours as needed for anxiety. 6. Reglan 10 mg p.o. q.6 hours as needed for nausea, vomiting. 7. Omeprazole 20 mg p.o. daily. 8. Zofran 4 mg p.o. q.6 hours as needed for nausea, vomiting. 9. Potassium chloride 20 mEq p.o. daily. 10. Zantac 300 mg p.o. daily. HOSPITAL IMAGIN. CT of chest, abdomen, and pelvis shows no evidence of metastatic disease. On chest images, abdomen shows interval development of innumerable moderately well circumscribed hypodense, but denser than water, hepatic lesions most suspicious for metastasis, negative for lymphadenopathy, rectosigmoid colon, bowel anastomosis without any suspicious findings. 2. MRCP shows an abrupt termination of the right hepatic duct at the confluence of the left and right hepatic duct junction. There appears to be an ill-defined slightly hyperdense mass measuring up to 5.7 cm, which appears to be causing extrinsic compression on the duct at this level. Distal common bile duct is patent. Pancreatic duct unremarkable and innumerable other hepatic lesions are noted consisted with metastatic disease. HOSPITAL COURSE: This is a 42-year-old female with metastatic colorectal cancer who completed resection of her liver metastasis, May 2017, completed 10 cycles of FOLFOX who underwent resection of her primary colon tumor 11/10/17. Surgery was completed at [facility] and per the patient there were no complications. She had returned home and was relatively asymptomatic and then starting approximately 2 days prior to admission began feeling nauseated with decreased appetite and noticed her stool is turning more yellow. She was seen in the medical oncology office and labs at that time demonstrated significant elevation of her bilirubin and transaminases consistent with acute liver dysfunction. The patient was subsequently admitted for further management. CT of the chest, abdomen, and pelvis was completed which showed no disease within the chest but multiple hepatic lesions which were new compared to prior imaging from just 2 months ago. Her CEA was also markedly elevated to 200 where as 6 weeks ago was just 19. The patient was hydrated and treated with antiemetics. Repeat labs demonstrated near doubling of her bilirubin over a 24-hour period. She appeared to be consistent with an obstructive picture, although this was not demonstrated on her initial CT. The patient underwent MRCP which confirmed suspicion of obstruction with evidence of compression of the right hepatic duct. The patient has had all of her surgical care at [facility] and her surgeon, Dr. Young, was contacted regarding these findings who agreed to arrange ERCP for biliary stenting on an outpatient basis for her. At the time of discharge, the patient's transaminases had improved slightly, bilirubin was relatively stable, measured at 8.5 on day of discharge. Her nausea was controlled with oral antiemetics. DISCHARGE PLAN AND DISPOSITION: The patient is being discharged from the hospital with plans to proceed to the office of Dr. Young at [facility] later today for arrangement of ERCP and biliary stenting. The patient traveled with her MRCP and CT scan on a disc as well as copy of today's lab. The patient will follow up with Dr. Abdul following the procedure for resuming chemotherapy, which will likely include FOLFIRI and eventually Avastin after she is approximately 6 weeks out from her recent colon resection. REBECCA THOMAS [id number]/[facility] #: [id number] [facility] CENTERDorothy
== END 2017-11-29 10:50 | disposition home or self-care (01) ==
LOC: MED 14:02
PROVIDERS: ADMIT Internal Medicine Hematology & Oncology; ATTEND Internal Medicine Hematology & Oncology
DX: K83.1 Obstruction of bile duct (principal); K72.00 Acute and subacute hepatic failure without coma; C78.7 Secondary malignant neoplasm of liver and intrahepatic bile duct; C18.9 Malignant neoplasm of colon, unspecified; R53.82 Chronic fatigue, unspecified; K21.9 Gastro-esophageal reflux disease without esophagitis; E66.9 Obesity, unspecified; Z79.1 Long term (current) use of non-steroidal anti-inflammatories (NSAID); Z79.899 Other long term (current) drug therapy; Z88.8 Allergy status to other drugs, medicaments and biological substances; Z68.27 Body mass index [BMI] 27.0-27.9, adult; Z80.49 Family history of malignant neoplasm of other genital organs; Z80.0 Family history of malignant neoplasm of digestive organs; Z83.3 Family history of diabetes mellitus; Z82.49 Family history of ischemic heart disease and other diseases of the circulatory system; Z83.49 Family history of other endocrine, nutritional and metabolic diseases; Z80.3 Family history of malignant neoplasm of breast
CPT/HCPCS: 36415; 71260; 74177; 74181; 76376; 80053; 82248; 85025; 99222; 99233; 99239; A9270-GY; J1642; J2765; Q9967

== ENCOUNTER 2017-12-10 08:53 | Inpatient (IN) | payer OTHER ==
[2017-12-10] MEDS ORDERED: NS 0.9% 1000 ML*IV.FLUID IV ONE (09:37)
[2017-12-10 09:56] LABS: Urine Appearance Clear; Urine Blood Negative (Negative); Urine Color Amber; Urine Ketones Trace (Negative); Urine Protein Negative (Negative); Urine Specific Gravity 1.015 (1.010-1.030); Urine Urobilinogen Negative (Negative)
--- NOTE | 2017-12-10 10:04 | RAD ---
Indication: Stent in liver. Now experiencing back pain. Metastatic colon carcinoma. Comparison: November 27, [address] Technique: Upright AP 0946 hours Report: Negative for free air beneath the diaphragm. Tip of RIGHT chest port at level of RIGHT atrium. No focal pulmonary lesion, compelling alveolar consolidation, pleural effusion, pneumothorax. The heart, pulmonary vasculature, and mediastinal contours are unremarkable. IMPRESSION: No evidence for acute intrathoracic disease.
[2017-12-10 10:42] LABS: ABS Basophils 0 10^3/ul (0-0.2); ABS Eosinophils 0.4 10^3/ul (0-0.6); ABS Lymphocytes 0.4 10^3/ul (1.0-4.8); ABS Monocytes 0.5 10^3/ul (0-0.8); ABS Neutrophils 9.3 10^3/ul (1.5-7.7); ABS Nucleated RBC 0 10^3/ul; Eosinophil % 3.5 % (0-6); Hematocrit 39 % (35-47); Hemoglobin 13.3 g/dl (12.0-16.0); Lymphocyte % 3.7 % (25-47); Mean Corpuscular HGB Conc 34 g/dl (31-36); Mean Corpuscular Hemoglobin 31 pg (27-31); Mean Corpuscular Volume 92 fL (80-97); Mean Platelet Volume 9.8 um3 (7.4-10.4); Nucleated Red Blood Cells % 0.1; Platelet Count 154 10^3/ul (150-450); Red Blood Count 4.27 10^6/ul (4.0-5.4); Red Cell Distribution Width 14 % (10.5-15); White Blood Count 10.6 10^3/ul (3.5-10.8)
[2017-12-10 10:50] LABS: INR 0.97 (0.77-1.02)
[2017-12-10 10:53] LABS: EGFR Non-African American 79.4 (>60)
--- NOTE | 2017-12-10 11:06 | RAD ---
Indication: RIGHT flank pain. Biliary stent placed 10 days ago. Metastatic colon carcinoma. Post cholecystectomy. Comparison: November 27, 2017 CT. Technique: Ultrasound of the liver. Report: Appropriate direction flow documented in the portal and hepatic veins. No intrahepatic biliary dilatation evident. Shadowing from the common bile duct stent visualized. Irregularly margined subcapsular thick walled centrally markedly hypoechoic lesion measuring up to 10.3 x 4.9 x 5.5 cm is unchanged compared with the November 27, 2017 exam based on multiplanar review of the prior CT. This likely represents a secondary treated metastatic lesion. The liver is severely heterogeneous in echotexture corresponding with finding of innumerable metastatic lesions on prior CT. The pancreas is not well-visualized. No peripancreatic retroperitoneal fluid or ascites evident. 11.8 cm RIGHT kidney is negative for hydronephrosis. IMPRESSION: Biliary stent visualized at the common bile duct. Negative for intrahepatic biliary dilatation.
[2017-12-10] MEDS ORDERED: NS 0.9% 1000 ML* 1,000 ML IV ONE (11:52)
[2017-12-10] MEDS ORDERED: Piperacillin/Tazobac ADVAN(*) 3.375 GM in NS 0.9% 100 ML* 100 ML IVPB ONE (11:52)
[2017-12-10] MEDS ORDERED: Ibuprofen TAB* 600 MG PO ONE (12:21)
[2017-12-10] MEDS ORDERED: Ondansetron ODT TAB* 4 MG PO ONE (12:21)
[2017-12-10] MEDS ORDERED: Al Hydrox/Mg Hydrox/Simet LIQ* 30 ML UDC PO PRN (12:52)
[2017-12-10] MEDS ORDERED: Senna TAB PO PRN (12:52)
[2017-12-10] MEDS ORDERED: Docusate CAP* 100 MG PO PRN (12:52)
[2017-12-10] MEDS ORDERED: Ondansetron INJ* 2 MG/ML VIAL IV PRN (12:52)
[2017-12-10] MEDS ORDERED: Acetaminophen TAB* 325 MG PO PRN ×2 (12:52→15:32)
[2017-12-10] MEDS ORDERED: Ondansetron TAB* 4 MG PO PRN (12:57)
[2017-12-10] MEDS ORDERED: Fluticasone NASAL SPRAY 50MCG* 16 gm SPRAY BTL BOTH NARES PRN (12:57)
[2017-12-10] MEDS ORDERED: Cyclobenzaprine TAB* 10 MG PO PRN (12:57)
[2017-12-10] MEDS ORDERED: Hyoscyamine TAB* 0.125 MG PO PRN (12:57)
[2017-12-10] MEDS ORDERED: LORazepam TAB(*) 1 MG PO PRN (12:57)
[2017-12-10] MEDS ORDERED: Calcium Carbonate CHEW TAB* 500 MG (TUMS) PO PRN (12:59)
[2017-12-10] MEDS ORDERED: Zosyn per Pharmacy* NOTE FOLLOW UP SCH (13:00)
[2017-12-10] MEDS ORDERED: LORazepam INJ* 2 MG/ML 1 ML VIAL IV ONE (13:00)
[2017-12-10] MEDS ORDERED: LORazepam INJ* 2 MG/ML 1 ML VIAL ONE (13:01)
--- NOTE | 2017-12-10 14:01 | RAD ---
INDICATION: Bilateral flank pain. Exhausted, fever, achy. Liver and colon cancer. Biliary stent. Potential urinary tract infection. Post hysterectomy, Destini fundoplication, colon resection, IVC filter placement. COMPARISON: November 27, 2017 CT. TECHNIQUE: Multidetector CT images were obtained from the lung bases to the ischial tuberosities. Evaluation of the viscera is limited without IV contrast. Multiplanar reformation. REPORT: Unremarkable visualized inferior thorax. Tip of RIGHT chest port catheter at level of RIGHT atrium. Small caliber biliary stent in place. No biliary dilatation evident. Unchanged loculated fluid collection margin by surgical clips at the RIGHT posterior hepatic segment measuring up to 10 cm maximum dimension reference the lateral reformatted image. Post cholecystectomy. No CT abnormality of the unenhanced pancreas or spleen. Sigmoid rectal bowel anastomosis without suspicious finding. Small to moderate volume of stool in the colon. No suspicious finding of the small bowel loops or upper GI. Unremarkable appendix visualized along the RIGHT pelvic sidewall. Small volume of nonloculated ascites. Negative for free air or significant hernias. Negative for adrenal masses. Malrotated RIGHT kidney. Negative for nephrolithiasis or hydronephrosis. No suspicious finding along the course of the nondilated ureters or at the level of the largely decompressed urinary bladder. Negative for lymphadenopathy. Unremarkable abdominal aorta and iliac arteries. IVC filter in place. Negative for suspicious osseous lesions. IMPRESSION: 1. Small caliber biliary stent in place. No biliary dilatation evident. Unchanged loculated fluid collection margin by surgical clips at the RIGHT posterior hepatic segment measuring up to 10 cm maximum dimension reference the lateral reformatted image. No intralesional gas to favor abscess. Conspicuity of the remaining no focal hepatic lesions based on correlation with the November 27, 2017 CT is limited without contrast. 2. No peritoneal abscess evident. 3. Negative for urolithiasis or hydronephrosis.
[2017-12-10] MEDS: Ibuprofen TAB* 400 MG PO PRN (14:57)
[2017-12-10] MEDS: Fondaparinux* 7.5 MG/0.6 ML SYRINGE SUBCUT SCH (14:57)
[2017-12-10] MEDS: NS 0.9% 1000 ML* 1,000 ML IV SCH ×2 (14:57→21:20)
[2017-12-10] MEDS: ZOSYN 3.375 GM Q8H per EXTENDED INFUSION IVPB SCH ×2 (15:25)
[2017-12-10] MEDS: Metoclopramide TAB* 10 MG PO PRN (15:25)
--- NOTE | 2017-12-10 15:52 | ED ---
Alix Hillman Emily, scribed for Jaren Woo MD on 12/10/17 at 0929 . Abdominal Pain/Female - HPI Summary HPI Summary: This patient is a 42 year old F referred to [facility] by Dr. Coates accompanied by family with a chief complaint of bilateral flank pain radiating to back that worsened yesterday. The patient rates the pain 6/10 in severity. Symptoms aggravated by nothing. Symptoms alleviated by Motrin. Patient reports chills, fatigue, myalgia, and nausea. Family reports that the patient's eyes are more yellow than usual. Patient reports that she recently had surgery to place a biliary stent in the liver on 11/30/2017. Pt reports that she has colon cancer that has metastasized to the liver and is supposed to start chemo tomorrow. - History of Current Complaint Chief Complaint: EDFlankPain Stated Complaint: WEAKNESS/PAIN Time Seen by Provider: 12/10/17 09:19 Hx Obtained From: Patient ?: No Onset/Duration: Sudden Onset, Lasting Days, Still Present Timing: Constant Severity Initially: Moderate Severity Currently: Moderate Pain Intensity: 6 Pain Scale Used: 0-10 Numeric Location: Flank - Bilateral Radiates: Yes Radiates to: Back Aggravating Factor(s): Nothing Alleviating Factor(s): OTC Analgesics Associated Signs and Symptoms: Positive: Other: - Positive chills, fatigue, myalgia, and nause Allergies/Adverse Reactions: Allergies Allergy/AdvReac Type Severity Reaction Status Date / Time nitrofurantoin Allergy Severe Palpitation Verified 12/10/17 09:04 s topiramate Allergy Severe Altered Verified 12/10/17 09:04 Mental Status acetaminophen [From Percocet] Allergy Intermediate Difficulty Verified 12/10/17 09:04 Breathing butorphanol Allergy Intermediate Hallucinati Verified 12/10/17 09:04 ons ketorolac Allergy Intermediate Difficulty Verified 12/10/17 09:04 Breathing oxycodone [From Percocet] Allergy Intermediate Difficulty Verified 12/10/17 09: 04 Breathing cetirizine [From Zyrtec] Allergy Unknown See Comment Verified 12/10/17 09:04 control Allergy Intermediate Difficulty Uncoded 12/10/17 09:04 Breathing Home Medications: Home Medications Ascorbic Acid TAB* [Vitamin C TAB*] 1,000 mg PO DAILY 12/10/17 [History Confirmed 12/10/17] Calcium Carbonate/Vitamin D3 [Calcium 600 + Vit D Tablet] 1 tab PO DAILY [History Confirmed 12/10/17] Hyoscyamine TAB* [Anaspaz 0.125 MG TAB*] 0.125 mg PO Q6H PRN 12/10/17 [History Confirmed 12/10/17] Ibuprofen TAB* [Advil TAB*] 200 mg PO Q6H PRN 12/10/17 [History Confirmed ] LORazepam TAB(*) [Ativan 1 MG TAB (*)] 1 mg PO Q12H PRN 12/10/17 [History Confirmed 12/10/17] Omeprazole CAP* [Prilosec CAP* 20 MG] 40 mg PO DAILY 12/10/17 [History Confirmed 12/10/17] Potassium Chlor TAB* [Klor Con ER TAB*] 20 meq PO DAILY 12/10/17 [History Confirmed 12/10/17] Ranitidine TAB (NF) [Zantac TAB (NF)] 300 mg PO DAILY 12/10/17 [History Confirmed 12/10/17] Vitamin E CAP* 1,000 unit PO DAILY 12/10/17 [History Confirmed 12/10/17] PMH/Surg Hx/FS Hx/Imm Hx Previously Healthy: No Endocrine/Hematology History: Denies: Hx Diabetes Cardiovascular History: Denies: Hx Hypertension, Hx Pacemaker/ICD Respiratory History: Reports: Hx Pulmonary Embolism - April 2017 GI History: Reports: Hx Gastroesophageal Reflux Disease, Other GI Disorders - Colon cancer History: Denies: Hx Renal Disease Sensory History: Reports: Hx Contacts or Glasses Denies: Hx Hearing Aid Opthamlomology History: Reports: Hx Contacts or Glasses Psychiatric History: Denies: Hx Panic Disorder - Cancer History Cancer Type, Location and Year: Stage 4 Liver and Colon CA Hx Chemotherapy: Yes Hx Radiation Therapy: No - Surgical History Surgery Procedure, Year, and Place: [id number],2x c-sect,01/05/17-nadya findoplication w/biosyn suture-cleared by ,ganglion cyst r foot, colon resection november 2017, ivc filter 05/2017- argon(up to 3T) Hx Anesthesia Reactions: Yes - hard time waking up; low BP Infectious Disease History: No Infectious Disease History: Denies: Traveled Outside the [place] in Last 30 Days - Family History Known Family History: Positive: Hypertension, Other - NEGATIVE: Colon CA - Social History Occupation: Unemployed Lives: With Family Alcohol Use: None Hx Substance Use: No Substance Use Type: Reports: None Hx Tobacco Use: No Smoking Status (MU): Never Smoked Tobacco Review of Systems Positive: Chills, Fatigue Positive: Abdominal Pain - Flank pain, Nausea Positive: Myalgia All Other Systems Reviewed And Are Negative: Yes Physical Exam - Summary Physical Exam Summary: General: mildly ill appearing, no pain distress Skin: warm, color reflects adequate perfusion, dry Head: normal Eyes: EOMI, [place], Positive scleral icterus. ENT: normal Neck: supple, nontender Respiratory: CTA, breath sounds present Cardiovascular: RRR Abdomen: soft, Bilateral flank tenderness to palpation. Bowel: present Musculoskeletal: normal, strength/ROM intact Neurological: sensory/motor intact, A&O x3 Psychological: affect/mood appropriate Triage Information Reviewed: Yes Vital Signs On Initial Exam: Initial Vitals Temp Pulse Resp BP Pulse Ox 97.9 F 93 16 97/70 96 12/10/17 09:05 12/10/17 09:05 12/10/17 09:05 12/10/17 09:05 12/10/17 09:05 Vital Signs Reviewed: Yes Diagnostics - Vital Signs Vital Signs Temp Pulse Resp BP Pulse Ox 12/10/17 09:05 97.9 F 93 16 97/70 96 - Laboratory Lab Results: Lab Results 12/10/17 12/10/17 12/10/17 Range/Units 09:37 10:23 10:23 WBC 10.6 (3.5-10.8) 10^3/ul RBC 4.27 (4.0-5.4) 10^6/ul Hgb 13.3 (12.0-16.0) g/dl Hct 39 (35-47) % MCV 92 (80-97) fL MCH 31 (27-31) pg MCHC 34 (31-36) g/dl RDW 14 (10.5-15) % Plt Count 154 (150-450) 10^3/ul MPV 9.8 (7.4-10.4) um3 Neut % (Auto) 88.2 H (38-83) % Lymph % (Auto) 3.7 L (25-47) % Simpson % (Auto) 4.4 (0-7) % Eos % (Auto) 3.5 (0-6) % Baso % (Auto) 0.2 (0-2) % Absolute Neuts (auto) 9.3 H (1.5-7.7) 10^3/ul Absolute Lymphs (auto) 0.4 L (1.0-4.8) 10^3/ul Absolute Monos (auto) 0.5 (0-0.8) 10^3/ul Absolute Eos (auto) 0.4 (0-0.6) 10^3/ul Absolute Basos (auto) 0 (0-0.2) 10^3/ul Absolute Nucleated RBC 0 10^3/ul Nucleated RBC % 0.1 INR (Anticoag Therapy) 0.97 (0.77-1.02) APTT 37.0 H (26.0-36.3) seconds Sodium (139-145) mmol/L Potassium (3.5-5.0) mmol/L Chloride (101-111) mmol/L Carbon Dioxide (22-32) mmol/L Anion Gap (2-11) mmol/L BUN (6-24) mg/dL Creatinine (0.51-0.95) mg/dL Est GFR ( Amer) (>60) Est GFR (Non-Af Amer) (>60) BUN/Creatinine Ratio (8-20) Glucose (70-100) mg/dL Lactic Acid (0.5-2.0) mmol/L Calcium (8.6-10.3) mg/dL Total Bilirubin (0.2-1.0) mg/dL AST (13-39) U/L ALT (7-52) U/L Alkaline Phosphatase (34-104) U/L Troponin I (<0.04) ng/mL C-Reactive Protein (< 5.00) mg/L Total Protein (6.4-8.9) g/dL Albumin (3.2-5.2) g/dL Globulin (2-4) g/dL Albumin/Globulin Ratio (1-3) Lipase (11.0-82.0) U/L Procalcitonin (<0.6) ng/mL Urine Color Bri Urine Appearance Clear Urine pH 7.0 (5-9) Ur Specific [place] 1.015 (1.010-1.030) Urine Protein Negative (Negative) Urine Ketones Trace A (Negative) Urine Blood Negative (Negative) Urine Nitrate Negative (Negative) Urine Bilirubin Negative (Negative) Urine Urobilinogen Negative (Negative) Ur Leukocyte Esterase Negative (Negative) Urine Glucose Negative (Negative) 12/10/17 12/10/17 12/10/17 Range/Units 10:23 10:23 10:23 WBC (3.5-10.8) 10^3/ul RBC (4.0-5.4) 10^6/ul Hgb (12.0-16.0) g/dl Hct (35-47) % MCV (80-97) fL MCH (27-31) pg MCHC (31-36) g/dl RDW (10.5-15) % Plt Count (150-450) 10^3/ul MPV (7.4-10.4) um3 Neut % (Auto) (38-83) % Lymph % (Auto) (25-47) % Simpson % (Auto) (0-7) % Eos % (Auto) (0-6) % Baso % (Auto) (0-2) % Absolute Neuts (auto) (1.5-7.7) 10^3/ul Absolute Lymphs (auto) (1.0-4.8) 10^3/ul Absolute Monos (auto) (0-0.8) 10^3/ul Absolute Eos (auto) (0-0.6) 10^3/ul Absolute Basos (auto) (0-0.2) 10^3/ul Absolute Nucleated RBC 10^3/ul Nucleated RBC % INR (Anticoag Therapy) (0.77-1.02) APTT (26.0-36.3) seconds Sodium 136 L (139-145) mmol/L Potassium 3.7 (3.5-5.0) mmol/L Chloride 99 L (101-111) mmol/L Carbon Dioxide 28 (22-32) mmol/L Anion Gap 9 (2-11) mmol/L BUN 10 (6-24) mg/dL Creatinine 0.80 (0.51-0.95) mg/dL Est GFR ( Amer) 102.2 (>60) Est GFR (Non-Af Amer) 79.4 (>60) BUN/Creatinine Ratio 12.5 (8-20) Glucose 118 H (70-100) mg/dL Lactic Acid 0.7 (0.5-2.0) mmol/L Calcium 9.9 (8.6-10.3) mg/dL Total Bilirubin 4.60 H (0.2-1.0) mg/dL AST 234 H (13-39) U/L ALT 228 H (7-52) U/L Alkaline Phosphatase 909 H (34-104) U/L Troponin I 0.01 (<0.04) ng/mL C-Reactive Protein 27.71 H (< 5.00) mg/L Total Protein 7.0 (6.4-8.9) g/dL Albumin 4.0 (3.2-5.2) g/dL Globulin 3.0 (2-4) g/dL Albumin/Globulin Ratio 1.3 (1-3) Lipase 18 (11.0-82.0) U/L Procalcitonin 0.4 (<0.6) ng/mL Urine Color Urine Appearance Urine pH (5-9) Ur Specific [place] (1.010-1.030) Urine Protein (Negative) Urine Ketones (Negative) Urine Blood (Negative) Urine Nitrate (Negative) Urine Bilirubin (Negative) Urine Urobilinogen (Negative) Ur Leukocyte Esterase (Negative) Urine Glucose (Negative) Result Diagrams: 12/10/17 10:23 18 10:23 Lab Statement: Any lab studies that have been ordered have been reviewed, and results considered in the medical decision making process. - Radiology CXR Radiology Interpretation Completed By: Radiologist - CXR reveals, per radiologist, no evidence for acute intrathoracic disease. ED physician has reviewed this radiology report. - EKG 0947 Cardiac Rate: NL EKG Rhythm: Sinus Rhythm - [address] Segment: Normal Ectopy: None - Additional Comments Diagnostic Additional Comments: Liver US reveals, per radiologist, Biliary stent visualized at the common bile duct. Negative for intrahepatic biliary dilatation. ED physician has reviewed this radiology report. Re-Evaluation - Re-Evaluation First Eval Re-Evaluation Time: 11:43 Change: Unchanged Comment: Pt is currently reporting chills. Discussed results with pt. Patient's temperature at this time is 103 Second Eval Re-Evaluation Time: 12:17 Change: Unchanged Comment: Discussed plan of care with the patient Abdominal Pain Fem Course/Dx - Course Course Of Treatment: DISCUSSED WITH MARIETTA COATES AND HOSPITALIST. ADMIT HOSPITALIST. CRITICAL CARE TIME LESS THAN 30 MINUTES. - Diagnoses Provider Diagnoses: Fever, Hyperbilirubinemia, Abdominal pain - Provider Notifications Discussed Care Of Patient With: Geovany Coates Time Discussed With Above Provider: 10:00 Instructed by Provider To: Other - Consult with Dr. Coates (oncology) at 1000. Discussed the plan of care for the patient. Consult with Dr. Coates (oncology) at 1150. He recommended the patient be started on antibiotics and admitted to the hospital. Consult with Dr. Barriga (hospitalist) at 1201. She recommended that the patient may need to be transferred. Consult with Dr. Coates (oncology) at 1213. Discussed the plan of care for the patient. Consult with Dr. Barriga ( hospitalist) at 1223. She agrees to admit pt for further evaluation. Discharge - Sign-Out/Discharge Documenting (check all that apply): Discharge/Admit/Transfer - Admit to [facility] [place] - Discharge Plan Condition: Stable Disposition: ADMITTED TO [facility] - Billing Disposition and Condition Condition: STABLE Disposition: HOSP-[facility] [place] The documentation as recorded by the Alix hearn Emily accurately reflects the service I personally performed and the decisions made by me, Jaren Woo MD.
--- NOTE | 2017-12-10 18:42 | HP ---
CC: Geovany Abdul MD * HISTORY AND PHYSICAL: DATE OF ADMISSION: 12/10/17 TIME OF EVALUATION: 1300. PRIMARY CARE PHYSICIAN: Geovany Abdul MD CHIEF COMPLAINT: Bilateral flank pain. HISTORY OF PRESENT ILLNESS: This is a 42-year-old female with past medical history of colon cancer diagnosed in 2017 status post surgery and chemotherapy with liver metastases with a recent biliary stent placed on 11/30/17 in [place] who presents to the emergency room with 2 to 3 days of flank pain. She states the pain is worse on the left than that the right. She has had fevers and chills for the past 2 to 3 days. She is having migraines. She states she does have intermittent dysuria, nausea. No diarrhea. No abdominal pain. She has had weight loss since her colon resection back on 11/10/17. No chest pain or shortness of breath. No cough or no URI symptoms. No rash. The plan was for the patient to resume chemotherapy tomorrow, 12/11/17, with Dr. Abdul. In the emergency room, the patient had labs and imaging. Dr. Abdul was contacted and he recommended admission for IV fluids and antibiotics and was referred to the hospitalist service for further evaluation. In the emergency room, the patient received 2 L of fluid, Zosyn, Ativan 1 mg, Motrin 600 mg. Currently, the patient is complaining of significant chills. PAST MEDICAL HISTORY: 1. Metastatic colon cancer diagnosed in 2017, followed by Dr. Abdul. She has had surgery including a colon resection on 11/10/17 and she also just recently had a biliary stent placed secondary to liver mets with obstruction on . She is scheduled to resume chemotherapy tomorrow, 12/11/17. 2. Chronic fatigue syndrome. 3. GERD. 4. History of interstitial cystitis. 5. History of PE in April 2017. PAST SURGICAL HISTORY: 1. History of cholecystectomy. 2. . 3. Hysterectomy. 4. Colon resection on 11/10/17. MEDICATIONS: 1. Calcium carbonate 1 tab p.o. daily. 2. Vitamin C 1000 mg p.o. daily. 3. Ativan 1 mg p.o. q. 12 hours as needed. 4. Ibuprofen 200 mg q. 6 hours as needed. 5. Hyoscyamine 0.125 mg q. 6 hours as needed. 6. Vitamin E 1000 units daily. 7. Ranitidine 300 mg daily. 8. Potassium chloride 20 mEq p.o. daily. 9. Omeprazole 40 mg daily. 10. Zofran 4 mg every 6 hours as needed. 11. Reglan 10 mg q. 6 hours as needed. 12. Arixtra 7.5 mg subcu daily. 13. Flonase 2 sprays both nares daily as needed. 14. Cyclobenzaprine 10 mg b.i.d. as needed. ALLERGIES: NITROFURANTOIN, palpitations; TOPIRAMATE, altered mental status; TYLENOL, likely OXYCODONE, difficulty breathing; DINITROPHENOL, hallucinations; KETOROLAC, difficulty breathing; CONTROL, difficulty breathing. SOCIAL HISTORY: The patient lives at home with her , Chi Corcoran, who is her healthcare proxy. She has 2 children, ages 17 and 18. No smoking, alcohol, or illicit drug use. Code status full code. FAMILY HISTORY: No history of colon cancer. REVIEW OF SYSTEMS: A 14-point review of systems as mentioned in the HPI, otherwise negative. PHYSICAL EXAMINATION GENERAL: Mildly ill appearing with some mild rigors. Her friend is at the bedside. VITAL SIGNS: T-max 102.4, pulse rate 99, respiratory rate 17, oxygen saturation 99% on room air, and blood pressure 138/84. HEENT: Head: Normocephalic. Pupils are equal and reactive. Oropharynx: Mucous membranes are moist. NECK: No nuchal rigidity. No adenopathy. RESPIRATORY: Clear to auscultation. No wheezing, rhonchi, or rales. CARDIAC: Tachycardia. Soft systolic murmur heard throughout. ABDOMEN: Soft, nondistended. She does have some minimal tenderness in her right upper quadrant. No rebound or guarding. She has flank pain bilaterally, worsening on the left side. EXTREMITIES: No clubbing, cyanosis, or edema. +2 DPs. NEUROLOGICAL: Alert and oriented x3. No gross focal x neurologic deficits. LABORATORY DATA: White count 10.6, hemoglobin 13.3, hematocrit 39, platelets 154, neutrophils 88. INR is 0.97. Sodium 136, potassium 3.7, chloride 99, bicarb 28, BUN 10, creatinine 0.8. Total bili 4.6, AST 234, ALT 228, alk phos 909. CRP 27. Lipase 18. Lactic acid is 1.1. Urinalysis, trace ketones. RADIOGRAPHIC DATA: Chest x-ray, no evidence for acute intrathoracic disease. Liver ultrasound shows biliary stent visualized at the common bile duct, negative for intrahepatic biliary dilatation. On pelvic CT, small caliber biliary stent in place, no biliary dilatation evident, unchanged loculated fluid collection, margined by surgical at the right posterior hepatic segment measuring up to 10 cm, no intestinal gas, no peritoneal abscess, negative for urolithiasis or hydronephrosis. ASSESSMENT AND PLAN: This is a 42-year-old female with past medical history of colon cancer with liver mets with a recent biliary stent placement and colon resection who presents to the emergency room with fever and bilateral flank pain. 1. Fever and bilateral flank pain in the setting of transaminitis and elevated bilirubin. The concern is for sepsis secondary to her stent placement, although her physical exam is not consistent with this, as she has bilateral pain, worse on the left side as opposed to the right side. Her urine is unremarkable. I did a CAT scan that ruled out any stone contributing to her pain. I spoke with Dr. Abdul. Plan: Continue Zosyn and IVFs. Follow up on blood cultures. Continue Zofran, pain control, and antipyretics and oncology will takeover service in the morning. 2. Chronic medical problems. History of pulmonary embolism. Continue her Arixtra. Of note, the patient states she has not been taking it recently, she has been very busy. She had a recent in her family. 3. Gastroesophageal reflux disease. Continue her omeprazole. We do not have ranitidine in the formulary, we will continue Tums as needed and resume her remaining medications as prescribed. 4. FEN. We will place the patient on a regular diet and IV fluids. 5. DVT prophylaxis. The patient scores high risk. She is on Arixtra. 6. Code status. Full code. PATIENT TIME: Greater than 60 minutes was spent doing history and physical, more than half the time was spent in direct patient contact. [id number]/CPS #: [id number] BRIAN
[2017-12-11] MEDS: ZOSYN 3.375 GM Q8H per EXTENDED INFUSION IVPB SCH ×8 (00:19→23:31)
--- NOTE | 2017-12-11 03:47 | PN ---
Hospitalist Progress Note Date of Service: 12/11/17 Informed by RN that pt has 4 culture bolles with gram neg bacilli. Pt is on Zosyn currently and should cover gram negs. However, informed staff that clinical picture and sensitivity data will need to be followed by primary team.
[2017-12-11 06:28] LABS: ABS Basophils 0 10^3/ul (0-0.2); ABS Eosinophils 0.1 10^3/ul (0-0.6); ABS Lymphocytes 0.7 10^3/ul (1.0-4.8); ABS Monocytes 0.9 10^3/ul (0-0.8); ABS Neutrophils 12.5 10^3/ul (1.5-7.7); ABS Nucleated RBC 0 10^3/ul; Eosinophil % 0.4 % (0-6); Hematocrit 33 % (35-47); Hemoglobin 10.9 g/dl (12.0-16.0); Lymphocyte % 5.1 % (25-47); Mean Corpuscular HGB Conc 34 g/dl (31-36); Mean Corpuscular Hemoglobin 31 pg (27-31); Mean Corpuscular Volume 91 fL (80-97); Nucleated Red Blood Cells % 0; Platelet Count 109 10^3/ul (150-450); Red Blood Count 3.58 10^6/ul (4.0-5.4); Red Cell Distribution Width 14 % (10.5-15); White Blood Count 14.3 10^3/ul (3.5-10.8)
[2017-12-11] MEDS: Ibuprofen TAB* 400 MG PO PRN ×3 (06:38→23:31)
[2017-12-11 06:44] LABS: EGFR Non-African American 117.5 (>60)
[2017-12-11] MEDS: Omeprazole CAP* 20 MG PO SCH (07:33)
[2017-12-11] MEDS: NS 0.9% 1000 ML* 1,000 ML IV SCH ×3 (07:34→21:20)
[2017-12-11] MEDS: Fondaparinux* 7.5 MG/0.6 ML SYRINGE SUBCUT SCH (07:39)
[2017-12-11] MEDS: Ascorbic Acid TAB* 500 MG PO SCH (07:42)
[2017-12-11] MEDS: Vitamin E CAP* 200 UNITS PO SCH (07:42)
--- NOTE | 2017-12-11 08:07 | PN ---
Progress Note - Progress Note Date of Service: 12/11/17 SOAP: Subjective: feels better than last night but still weak. flank abdominal pain slightly improved. no nausea. no fevers at home, but felt cold. Objective: Vital Signs Temp Pulse Resp BP Pulse Ox 98.6 F 79 16 95/60 98 12/11/17 03:35 12/11/17 03:39 12/11/17 03:35 12/11/17 03:39 12/11/17 03:35 perr eomi scleral icterus op moist cta bl s1 s2 soft flow murmur soft nt +bs no le edema scattered ecchymoses on abdominal wall port clean A+0 x3 nonfocal neurological exam Laboratory Results - last 24 hr 12/10/17 12/10/17 12/10/17 09:37 10:23 10:23 WBC 10.6 RBC 4.27 Hgb 13.3 Hct 39 MCV 92 MCH 31 MCHC 34 RDW 14 Plt Count 154 MPV 9.8 Neut % (Auto) 88.2 H Lymph % (Auto) 3.7 L [place] % (Auto) 4.4 Eos % (Auto) 3.5 Baso % (Auto) 0.2 Absolute Neuts (auto) 9.3 H Absolute Lymphs (auto) 0.4 L Absolute Monos (auto) 0.5 Absolute Eos (auto) 0.4 Absolute Basos (auto) 0 Absolute Nucleated RBC 0 Nucleated RBC % 0.1 INR (Anticoag Therapy) 0.97 APTT 37.0 H Sodium Potassium Chloride Carbon Dioxide Anion Gap BUN Creatinine Est GFR ( Amer) Est GFR (Non-Af Amer) BUN/Creatinine Ratio Glucose Lactic Acid Calcium Total Bilirubin AST ALT Alkaline Phosphatase Troponin I C-Reactive Protein Total Protein Albumin Globulin Albumin/Globulin Ratio Lipase Procalcitonin Urine Color Bri Urine Appearance Clear Urine pH 7.0 Ur Specific [place] 1.015 Urine Protein Negative Urine Ketones Trace A Urine Blood Negative Urine Nitrate Negative Urine Bilirubin Negative Urine Urobilinogen Negative Ur Leukocyte Esterase Negative Urine Glucose Negative 12/10/17 12/10/17 12/10/17 10:23 10:23 10:23 WBC RBC Hgb Hct MCV MCH MCHC RDW Plt Count MPV Neut % (Auto) Lymph % (Auto) [place] % (Auto) Eos % (Auto) Baso % (Auto) Absolute Neuts (auto) Absolute Lymphs (auto) Absolute Monos (auto) Absolute Eos (auto) Absolute Basos (auto) Absolute Nucleated RBC Nucleated RBC % INR (Anticoag Therapy) APTT Sodium 136 L Potassium 3.7 Chloride 99 L Carbon Dioxide 28 Anion Gap 9 BUN 10 Creatinine 0.80 Est GFR ( Amer) 102.2 Est GFR (Non-Af Amer) 79.4 BUN/Creatinine Ratio 12.5 Glucose 118 H Lactic Acid 0.7 Calcium 9.9 Total Bilirubin 4.60 H AST 234 H ALT 228 H Alkaline Phosphatase 909 H Troponin I 0.01 C-Reactive Protein 27.71 H Total Protein 7.0 Albumin 4.0 Globulin 3.0 Albumin/Globulin Ratio 1.3 Lipase 18 Procalcitonin 0.4 Urine Color Urine Appearance Urine pH Ur Specific [place] Urine Protein Urine Ketones Urine Blood Urine Nitrate Urine Bilirubin Urine Urobilinogen Ur Leukocyte Esterase Urine Glucose 12/10/17 12/11/17 12/11/17 13:41 06:15 06:15 WBC 14.3 H RBC 3.58 L Hgb 10.9 L Hct 33 L MCV 91 MCH 31 MCHC 34 RDW 14 Plt Count 109 L MPV 9.0 Neut % (Auto) 88.0 H Lymph % (Auto) 5.1 L [place] % (Auto) 6.3 Eos % (Auto) 0.4 Baso % (Auto) 0.2 Absolute Neuts (auto) 12.5 H Absolute Lymphs (auto) 0.7 L Absolute Monos (auto) 0.9 H Absolute Eos (auto) 0.1 Absolute Basos (auto) 0 Absolute Nucleated RBC 0 Nucleated RBC % 0 INR (Anticoag Therapy) APTT Sodium 138 L Potassium 3.6 Chloride 107 Carbon Dioxide 24 Anion Gap 7 BUN 10 Creatinine 0.57 Est GFR ( Amer) 151.1 Est GFR (Non-Af Amer) 117.5 BUN/Creatinine Ratio 17.5 Glucose 91 Lactic Acid 1.1 Calcium 9.1 Total Bilirubin 3.00 H D AST 138 H ALT 170 H Alkaline Phosphatase 662 H Troponin I C-Reactive Protein Total Protein 5.4 L Albumin 3.0 L Globulin 2.4 Albumin/Globulin Ratio 1.3 Lipase Procalcitonin Urine Color Urine Appearance Urine pH Ur Specific [place] Urine Protein Urine Ketones Urine Blood Urine Nitrate Urine Bilirubin Urine Urobilinogen Ur Leukocyte Esterase Urine Glucose 4/4 blood culture bottles gram neg bacilli Acetaminophen (Tylenol Tab*) 650 mg PO Q4H PRN PRN Reason: FEVER Al Hydrox/Mg Hydrox/Simethicone (Maalox Plus*) 30 ml PO Q6H PRN PRN Reason: INDIGESTION Last Admin: 12/10/17 15:01 Dose: 30 ml Ascorbic Acid (Vitamin C Tab*) 1,000 mg PO DAILY [facility] Last Admin: 12/11/17 07:42 Dose: 1,000 mg Calcium Carbonate (Tums*) 500 mg PO Q4H PRN PRN Reason: INDIGESTION Last Admin: 12/10/17 15:01 Dose: 500 mg Cyclobenzaprine HCl (Flexeril Tab*) 10 mg PO BID PRN PRN Reason: SPASMS - BACK Docusate Sodium (Colace Cap*) 100 mg PO BID PRN PRN Reason: CONSTIPATION Fluticasone Propionate (Flonase Nasal [place] 50mcg*) 2 spray BOTH NARES DAILY PRN PRN Reason: Allergy Symptoms Fondaparinux (Arixtra*) 7.5 mg SUBCUT DAILY [facility] Last Admin: 12/11/17 07:39 Dose: 7.5 mg Heparin Sodium (Porcine) (Heparin Flush(*)) 5 ml IV FLUSH DAILY [facility] PRN Reason: Protocol Hyoscyamine (Anaspaz Tab*) 0.125 mg PO Q6H PRN PRN Reason: DYSPEPSIA Sodium Chloride (Ns 0.9% 1000 Ml*) 1,000 mls @ 150 mls/hr IV PER RATE [facility] Last Admin: 12/11/17 07:34 Dose: 150 mls/hr Piperacillin Sod/Tazobactam (Sod 3.375 gm/ Sodium Chloride) 100 mls @ 25 mls/ hr IVPB Q8H [facility] Last Admin: 12/11/17 07:36 Dose: 25 mls/hr Ibuprofen (Motrin Tab*) 400 mg PO Q6H PRN PRN Reason: Pain or fever Last Admin: 12/11/17 06:38 Dose: 400 mg Lorazepam (Ativan Tab(*)) 1 mg PO Q12H PRN PRN Reason: ANXIETY Metoclopramide HCl (Reglan Tab*) 10 mg PO Q6H PRN PRN Reason: NAUSEA Last Admin: 12/10/17 15:25 Dose: 10 mg Omeprazole (Prilosec Cap*) 40 mg PO DAILY@0730 [facility] Last Admin: 12/11/17 07:33 Dose: 40 mg Ondansetron HCl (Zofran Inj*) 4 mg IV Q4H PRN PRN Reason: NAUSEA/VOMITING Ondansetron HCl (Zofran Tab*) 4 mg PO Q6H PRN PRN Reason: NAUSEA Pharmacy Consult (Zosyn Per Pharmacy*) 1 note FOLLOW UP .ZOSYN PER PHARMACY [facility] Senna (Senokot Tab*) 1 tab PO BID PRN PRN Reason: CONSTIPATION Vitamin E (Vitamin E Cap*) 1,000 units PO DAILY [facility] Last Admin: 12/11/17 07:42 Dose: 1,000 units Assessment: 42 yo F w metastatic CRC with recent biliary stent placed at [facility] ~10 days ago now with gram negative bacteremia. This is concerning for an infected stent. There was no clear abscess seen on abdominal imaging. Plan: Gram negative bacteremia: -cont zosyn -ID consult, ?need for stent replacement. If so, not sure this can be done here (unclear to me if it was done at [facility] before because of lack of GI coverage or inability to do procedure locally) -cont IVFs, BP <100 systolic, but often low in office so I suspect she runs low PE: -cont arixtra full code
--- NOTE | 2017-12-11 09:14 | CONSULT ---
<SheronChantal - Last Filed: 12/11/17 12:48> Consult Consult: Infectious disease- initial consult note Consult requested by: Dr. Corral Consult reason: GNR bacteremia HPI: 42 yo woman pmhx stage IV colon cancer s/p chemo and resection with mets to the liver s/p biliary stent on 11/30/17, presented with b/l flank pain radiating to the back. Pt was undergoing a Destini fundoplication for refractory GERD sx in December 2016 when they noticed a large mass in her stomach, found to be metastatic colorectal cancer. Underwent 1 round of chemo FOLFOX in December 2016, liver mets was resected in May 2017, then successfully underwent colon resection in early November 2017. A few weeks later, had worsening jaundice and elevated bilirubin , so underwent biliary stent placement at [facility] on 11/30/17, was discharged a day later on 5-day course of Augmentin which she completed last Monday. The following day, she noticed b/l flank pain that progressively worsened in the following days. On monday, she felt clammy and developed chills, T99.1, + nausea but no emesis. No abd pain, dysuria, diarrhea, constipation, bloody stool , chest pain/sob. No URI sx. Planned to undergo round 2 of FOLFOX today. In the ED, she received 2L of IVF, zosyn, ativan 1mg and motrin 600mg. On my exam this AM, pt reported that b/l flank/back pain is completely resolved but has a headache. No abdominal pain. Thinks her jaundice is improved slightly. Eating/drinking well. Pt reports her baseline BP is low 90/70s. PMHx: 1. Metastatic colon cancer diagnosed in 2016, followed by Dr. Abdul. She has had surgery including a colon resection on 11/10/17 and she also just recently had a biliary stent placed secondary to liver mets with obstruction on 11/30/17. She is scheduled to resume chemotherapy tomorrow, 12/11/17. 2. Chronic fatigue syndrome. 3. GERD. 4. History of interstitial cystitis. 5. History of PE in April 2017. PSHx: 1. History of cholecystectomy. 2. . 3. Hysterectomy. 4. Colon resection on 11/10/17. Home meds: 1. Calcium carbonate 1 tab p.o. daily. 2. Vitamin C 1000 mg p.o. daily. 3. Ativan 1 mg p.o. q. 12 hours as needed. 4. Ibuprofen 200 mg q. 6 hours as needed. 5. Hyoscyamine 0.125 mg q. 6 hours as needed. 6. Vitamin E 1000 units daily. 7. Ranitidine 300 mg daily. 8. Potassium chloride 20 mEq p.o. daily. 9. Omeprazole 40 mg daily. 10. Zofran 4 mg every 6 hours as needed. 11. Reglan 10 mg q. 6 hours as needed. 12. Arixtra 7.5 mg subcu daily. 13. Flonase 2 sprays both nares daily as needed. 14. Cyclobenzaprine 10 mg b.i.d. as needed. Allergies: NITROFURANTOIN, palpitations; TOPIRAMATE, altered mental status; TYLENOL OXYCODONE, difficulty breathing; DINITROPHENOL, hallucinations; KETOROLAC, difficulty breathing; CONTROL, difficulty breathing. SHx: The patient lives at home with her , Chi Corcoran, who is her healthcare proxy. She has 2 children, ages 17 and 18. No smoking, alcohol, or illicit drug use. Code status full code. FHx: No history of colon cancer. Prostate cancer in grandfather. Breast cancer from maternal side. ROS: A 14-point review of systems as mentioned in the HPI, otherwise negative. PE: Selected Entries 12/10/17 12/11/17 12/11/17 14:45 03:35 03:39 Temperature 39.4 C 37.0 C Pulse Rate 116 76 79 Respiratory 26 16 Rate Blood Pressure 113/70 95/60 (mmHg) O2 Sat by Pulse 95 98 Oximetry Gen- fatigued appearing young woman, sititng in chair, NAD. HEENT- +icteric sclera b/l, MMM. CV-s1 s2, split s1, RRR, no murmurs. Pulm- CTA b/l. Abd- soft, +BS, NTND, no organomegaly. Extrem-no LE edema b/l, wwp. MSK- no CVA tenderness, no paraspinal or spinous process tenderness on palpation. Neuro-AOx3, non focal. Skin- R chest wall port no tenderness on palpation, no erythema. Labs: WBC 10 --> 14.3 (PMN 88%) AST 234 --> 138 ALT 228 --> 170 Alkphos 909 --> 662 Tbili 4.6 --> 3 Lactate 0.7 --> 1.1 Trop negative CRP 27.7 UA- trace ketones BCx 12/10- GNR / bottles EKG- NSR, QTc 412 Imaging: CT A/P: IMPRESSION: 1. Small caliber biliary stent in place. No biliary dilatation evident. Unchanged loculated fluid collection margin by surgical clips at the RIGHT posterior hepatic segment measuring up to 10 cm maximum dimension reference the lateral reformatted image. No intralesional gas to favor abscess. Conspicuity of the remaining no focal hepatic lesions based on correlation with the November 27, 2017 CT is limited without contrast. 2. No peritoneal abscess evident. 3. Negative for urolithiasis or hydronephrosis. U/S Liver: no biliary ductal dilatation, has heterogeneous appearing liver echos likely 2/ 2 mets. CXR: no focal consolidation. A/P: 42 yo woman with metastatic colon cancer s/p colon resection and biliary stents for obstruction on 11/30/17 presented with b/l flank pain x2-3 days, found to have GNR bacteremia. Has an unchanged 10cm loculated fluid collection by the surgical site of R posterior hepatic segment but no e/o urolithiasis or hydronephrosis on imaging. Source of GNR bacteremia likely biliary in pathology given recent instrumentation, pt currently hemodynamically stable and clinically improving on Zosyn. - daily surveillance BCx until cultures cleared for 48hrs. - continue zosyn, has good G(-) and anaerobic coverage. - f/u speciation/sensitivities of BCx from 12/10. - back pain resolved, low suspicion for osteomyelitis/discitis, sx likely 2/2 sepsis. - no e/o new abscess/fluid collection on imaging but does have a loculated fluid collection by surgical site- discuss need for drainage with IR. Consider MRI of the liver to further assess the collection. - to be discussed with ID attending Dr. Coleman. Chantal Holbrook PGY3, [facility] IM resident <[place] CARDONA,Tim Rojas - Last Filed: 12/12/17 08:33> Consult Consult: Seen, examined, discussed with Dr Holbrook, I agree with her note above. 1. Klebsiella bacteremia ddx includes secondary infection of site of tumor resection in liver or biliary stent infection. Less likely port related. I discussed the case with Dr Chandler who will review the imaging to decide on best modality to aspirate the liver collection.
[2017-12-12] MEDS: NS 0.9% 1000 ML* 1,000 ML IV SCH (04:03)
[2017-12-12 06:16] LABS: Hematocrit 29 % (35-47); Hemoglobin 9.8 g/dl (12.0-16.0); Mean Corpuscular HGB Conc 33 g/dl (31-36); Mean Corpuscular Hemoglobin 31 pg (27-31); Mean Corpuscular Volume 93 fL (80-97); Mean Platelet Volume 9.7 um3 (7.4-10.4); Platelet Count 85 10^3/ul (150-450); Red Blood Count 3.17 10^6/ul (4.0-5.4); Red Cell Distribution Width 14 % (10.5-15); White Blood Count 5.8 10^3/ul (3.5-10.8)
[2017-12-12 06:17] LABS: ABS Basophils 0 10^3/ul (0-0.2); ABS Eosinophils 0.2 10^3/ul (0-0.6); ABS Lymphocytes 0.7 10^3/ul (1.0-4.8); ABS Monocytes 0.7 10^3/ul (0-0.8); ABS Neutrophils 4.2 10^3/ul (1.5-7.7)
[2017-12-12 06:20] LABS: EGFR Non-African American 143.2 (>60)
[2017-12-12 06:47] LABS: Monocytes % 6 % (0-7)
[2017-12-12] MEDS: Omeprazole CAP* 20 MG PO SCH (07:30)
[2017-12-12] MEDS: ZOSYN 3.375 GM Q8H per EXTENDED INFUSION IVPB SCH ×2 (07:55)
[2017-12-12] MEDS: Ibuprofen TAB* 400 MG PO PRN ×2 (08:42→17:29)
[2017-12-12] MEDS: Vitamin E CAP* 200 UNITS PO SCH (09:00)
[2017-12-12] MEDS: Ascorbic Acid TAB* 500 MG PO SCH (09:00)
[2017-12-12] MEDS ORDERED: fentaNYL* 50 MCG/ML 2 ML VIAL (100 MCG VIAL) ONE ×3 (11:28→12:29)
[2017-12-12] MEDS ORDERED: oxyCODONE TAB* 5 MG TAB PO PRN (13:24)
--- NOTE | 2017-12-12 13:24 | RAD ---
CPT II Codes: 6100F INDICATION: Right lobe liver abscess in the presence of bacteremia COMPARISON: CT abdomen pelvis December 10, 2017 as well as ultrasound of the liver December 10, 2017 ANESTHESIA: 1% lidocaine injected locally. The patient received intravenous fentanyl. Cardiopulmonary status was monitored by Dr. Chandler and the IR nurse. PROCEDURE NOTE: The benefits and risks of procedure explained to the patient and the patient signed informed consent. Multiple images of the right lobe liver abscess were obtained. The fluid collection in question was identified and a percutaneous tract was determined. A time out was performed before beginning the procedure. The patient was prepped and draped in the usual sterile fashion. The skin and tissue overlying the fluid collection were anesthetized with 1% lidocaine. Percutaneously, a 10 [place] pigtail drain was inserted into the collection under sonographic guidance according to the trocar technique. The drainage tube was secured to the skin and dressed with sterile gauze. The tube was attached to a three-way stopcock valves and drainage bag. A 40 mL sample of purulent fluid was aspirated into a syringe and sent to the laboratory for testing. The post procedure ultrasound demonstrates the drain in appropriate position and no evidence for hematoma. The patient tolerated procedure well without incident. IMPRESSION: Uncomplicated ultrasound-guided placement of a 10 [place] pigtail drainage catheter into right lobe liver abscess.
[2017-12-12] MEDS: Metoclopramide TAB* 10 MG PO PRN (13:25)
[2017-12-12] MEDS ORDERED: fentaNYL PATCH 25 MCG/HR TRANSDERM SCH (14:00)
[2017-12-12] MEDS: cefTRIAXone(*) 1 GM in NS 0.9% 50 ML* 50 ML IVPB SCH (15:38)
--- NOTE | 2017-12-12 16:25 | PN ---
Progress Note - Progress Note Date of Service: 12/12/17 SOAP: Subjective: CC: bacteremia HPI: 42 year old woman with metastatic colon cancer, admitted with fever and malaise; found to have bacteremia and right lobe of liver mass. No fever today. Had IR drain which she tolerated well. Objective: Vital Signs Temp 36.8 C 12/12/17 13:08 Pulse 82 12/12/17 13:58 Resp 16 12/12/17 14:03 BP 121/72 12/12/17 13:58 Pulse Ox 100 12/12/17 13:58 Intake & Output 12/11/17 12/12/17 12/12/17 18:59 06:59 18:59 Intake Total 2113 240 2751 Output Total 0 37 Balance 2113 240 2714 Intake: IV Fluids 1183 2736 ABX - ZOSYN 100 210 NS (0.9%) 1083 2526 Oral 930 240 15 Output: Abdominal Drain 37 Urine 0 Other: # Bowel Movements 1 0 # Voids 10 2 Gen:awake, no distress HEENT: no thrush Heart:RRR no murmur Lungs:CTA BL Abd:+BS NTND soft; R sided drain yellow fluid Skin: No rash Laboratory Results - last 24 hr 12/12/17 12/12/17 05:45 05:45 WBC 5.8 RBC 3.17 L Hgb 9.8 L Hct 29 L MCV 93 MCH 31 MCHC 33 RDW 14 Plt Count 85 L D MPV 9.7 Neut % (Auto) Not Reportable Lymph % (Auto) Not Reportable [place] % (Auto) Not Reportable Eos % (Auto) Not Reportable Baso % (Auto) Not Reportable Absolute Neuts (auto) 4.2 Absolute Lymphs (auto) 0.7 L Absolute Monos (auto) 0.7 Absolute Eos (auto) 0.2 Absolute Basos (auto) 0 Absolute Nucleated RBC Not Reportable Immature Gran % 5 Neutrophils % 77 Band Neutrophils % 5 Lymphocytes % 9 L Monocytes % 6 Eosinophils % 3 Basophils % 0 Nucleated RBC % Not Reportable Abs Neuts (Manual) 4.5 Abs Lymphs (Manual) 0.5 L Abs Monocytes (Manual) 0.3 Absolute Eos (Manual) 0.2 Abs Basophils (Manual) 0 Normal RBC Morphology Normal Hem Pathologist Commnt Sodium 141 Potassium 3.7 Chloride 112 H Carbon Dioxide 24 Anion Gap 5 BUN 5 L Creatinine 0.48 L Est GFR ( Amer) 184.2 Est GFR (Non-Af Amer) 143.2 BUN/Creatinine Ratio 10.4 Glucose 96 Calcium 8.7 Total Bilirubin 1.90 H Direct Bilirubin 1.10 H Indirect Bilirubin 0.8 AST 74 H ALT 118 H Alkaline Phosphatase 537 H Total Protein 5.2 L Albumin 2.8 L Globulin 2.4 Albumin/Globulin Ratio 1.2 Assessment: 1. klebsiella bacteremia with right lobe liver abscess; secondary infection of site of previous tumor resection. s/p IR drain 2. metastatic colon cancer with biliary obstruction s/p biliary stent Plan: 1. ceftriaxone 1gm daily for 4 weeks with weekly cbc, cmp, crp and fu imaging Drain per IR. Cytology and cultures pending.
[2017-12-12] MEDS: fentaNYL Patch Check Q Shift 1 NOTE SCH (18:55)
[2017-12-13 05:53] LABS: Hematocrit 30 % (35-47); Hemoglobin 10.1 g/dl (12.0-16.0); Mean Corpuscular HGB Conc 34 g/dl (31-36); Mean Corpuscular Hemoglobin 31 pg (27-31); Mean Corpuscular Volume 92 fL (80-97); Mean Platelet Volume 9.5 um3 (7.4-10.4); Platelet Count 94 10^3/ul (150-450); Red Blood Count 3.29 10^6/ul (4.0-5.4); Red Cell Distribution Width 14 % (10.5-15)
[2017-12-13 05:54] LABS: ABS Basophils 0 10^3/ul (0-0.2); ABS Eosinophils 0.2 10^3/ul (0-0.6); ABS Lymphocytes 0.9 10^3/ul (1.0-4.8); ABS Monocytes 0.7 10^3/ul (0-0.8); ABS Neutrophils 3.2 10^3/ul (1.5-7.7); ABS Nucleated RBC 0 10^3/ul
[2017-12-13 06:09] LABS: EGFR Non-African American 162.6 (>60)
[2017-12-13 06:27] LABS: Monocytes % 8 % (0-7)
[2017-12-13] MEDS: fentaNYL Patch Check Q Shift 1 NOTE SCH (07:20)
[2017-12-13] MEDS: Omeprazole CAP* 20 MG PO SCH (08:15)
[2017-12-13] MEDS: Ascorbic Acid TAB* 500 MG PO SCH (08:16)
[2017-12-13] MEDS: Vitamin E CAP* 200 UNITS PO SCH (08:16)
[2017-12-13] MEDS: Ibuprofen TAB* 400 MG PO PRN ×2 (08:16→14:31)
[2017-12-13] MEDS: cefTRIAXone(*) 1 GM in NS 0.9% 50 ML* 50 ML IVPB SCH (13:58)
[2017-12-13 15:48] VITALS: BP 116/81
== END 2017-12-13 16:30 | disposition home or self-care (01) | DRG 721 ==
LOC: ED 08:53 → MED 12:52
PROVIDERS: ADMIT Pediatrics; ATTEND Internal Medicine Hematology & Oncology
PROC: 0F9130Z Drainage of Right Lobe Liver with Drainage Device, Percutaneous Approach (ICD-10-PCS; principal; 2017-12-12)
DX: T85.79XA Infection and inflammatory reaction due to other internal prosthetic devices, implants and grafts, initial encounter (principal); K75.0 Abscess of liver; R78.81 Bacteremia; C78.7 Secondary malignant neoplasm of liver and intrahepatic bile duct; Z96.89 Presence of other specified functional implants; R53.82 Chronic fatigue, unspecified; K21.9 Gastro-esophageal reflux disease without esophagitis; R74.0 Nonspecific elevation of levels of transaminase and lactic acid dehydrogenase [LDH]; I10 Essential (primary) hypertension; E80.6 Other disorders of bilirubin metabolism; G43.909 Migraine, unspecified, not intractable, without status migrainosus; B96.1 Klebsiella pneumoniae [K. pneumoniae] as the cause of diseases classified elsewhere; Y83.8 Other surgical procedures as the cause of abnormal reaction of the patient, or of later complication, without mention of misadventure at the time of the procedure; Z80.42 Family history of malignant neoplasm of prostate; Z85.038 Personal history of other malignant neoplasm of large intestine; Z90.49 Acquired absence of other specified parts of digestive tract; Z90.710 Acquired absence of both cervix and uterus; Z86.711 Personal history of pulmonary embolism; Z88.8 Allergy status to other drugs, medicaments and biological substances; Z91.048 Other nonmedicinal substance allergy status; Z56.0 Unemployment, unspecified; Z92.21 Personal history of antineoplastic chemotherapy; Z88.1 Allergy status to other antibiotic agents; Z88.5 Allergy status to narcotic agent; Z88.6 Allergy status to analgesic agent; Z82.49 Family history of ischemic heart disease and other diseases of the circulatory system
CPT/HCPCS: 36415; 49406; 71045; 74176; 76705; 80053; 81003; 82248; 83605; 83690; 84145; 84484; 85025; 85060; 85610; 85730; 86140; 87040; 87077; 87186; 87205; 88112; 93005; 99233; 99238; 99284; A9270-GY; J0696; J1642; J2060; J2543; J3010

== ENCOUNTER 2019-01-13 18:52 | Inpatient (IN) | payer OTHER ==
--- NOTE | 2019-01-13 19:42 | ED ---
Abdominal Pain/Female - HPI Summary HPI Summary: This patient is a 43 year old F presenting to [facility] accompanied by her friend with a chief complaint of increased jaundice from colon and liver cancer for around 2 weeks. She states that her labs have not been consistent with the imaging reports and has a bili of 5.0. She stated that she called Dr. Flores who was the election judge doctor for her MRI tomorrow who recommended coming in the ED. She states that she is having nausea with epigastric pain, described as pressure that radiates to her R shoulder where her port is located. She states that she has been unable to sleep on her L side or her back due to an increase in pain. She states that she also has pain on her RLQ where her liver cancer is and has had an increase in fatigue. States that by the end of the day she is too tired to do much and becomes fatigued while standing. Her pain is rated a 5/ 10 in severity. She states that she has had cramping, bloating, appetite changes , and an increased frequency of BMs as well. She denies any headaches, vomiting , diarrhea, fevers, urinary pains, diaphoresis, SOB, and a sore throat. She has a Hx of colon and liver cancer and has a Hx of sepsis. She states that these symptoms are similar to when she needed a stent. States that she has aggravating factors of positional changes. She has alleviating factors of Imodium for her BMs and cramps. - History of Current Complaint Chief Complaint: EDAbdPain Stated Complaint: JAUNDICE PER PT Time Seen by Provider: 01/13/19 19:16 Hx Obtained From: Patient ?: No Onset/Duration: Gradual Onset - past 2 weeks, Still Present, Worse Since Timing: Constant Severity Initially: Mild Severity Currently: Moderate Pain Intensity: 5 Pain Scale Used: 0-10 Numeric Location: Discrete At: RLQ, Epigastric Radiates: Yes Radiates to: Other - R shoulder where her port is located Character: Cramping - abdominal pain, Other: - pressure, CP Aggravating Factor(s): Other: - positional changes Alleviating Factor(s): Other: - immodium Associated Signs and Symptoms: Positive: Negative - headache, sore throat., Chest Pain - epigastric, Back Pain, Decreased Appetite, Nausea, Other: - POSITIVE: cramping, bloating, increased BM frequency, fatigue, R shoulder pain about her port. Negative: Diaphoresis, Fever, Cough, Urinary Symptoms, Vomiting , Diarrhea Allergies/Adverse Reactions: Allergies Allergy/AdvReac Type Severity Reaction Status Date / Time nitrofurantoin Allergy Severe Palpitation Verified 01/13/19 19:00 s topiramate Allergy Severe Altered Verified 01/13/19 19:00 Mental Status butorphanol Allergy Intermediate Hallucinati Verified 01/13/19 19:00 ons estradiol Allergy Intermediate Difficulty Verified 01/13/19 19:00 Breathing ketorolac Allergy Intermediate Difficulty Verified 01/13/19 19:00 Breathing oxycodone [From Percocet] Allergy Intermediate Difficulty Verified 01/13/19 19: 00 Breathing cetirizine [From Zyrtec] Allergy Unknown See Comment Verified 01/13/19 19:00 diphenhydramine Allergy Unknown Verified 01/13/19 19:00 [From Benadryl] Reaction Details prochlorperazine Allergy Unknown Verified 01/13/19 19:00 [From Compazine] Reaction Details PMH/Surg Hx/FS Hx/Imm Hx Previously Healthy: No Endocrine/Hematology History: Denies: Hx Diabetes Cardiovascular History: Denies: Hx Hypertension, Hx Pacemaker/ICD Respiratory History: Reports: Hx Pulmonary Embolism - April 2017 GI History: Reports: Hx Gastroesophageal Reflux Disease, Other GI Disorders - Colon cancer History: Denies: Hx Renal Disease Sensory History: Reports: Hx Contacts or Glasses Denies: Hx Hearing Aid Opthamlomology History: Reports: Hx Contacts or Glasses Psychiatric History: Denies: Hx Panic Disorder - Cancer History Cancer Type, Location and Year: Stage 4 Liver and Colon CA Hx Chemotherapy: Yes Hx Radiation Therapy: No - Surgical History Surgery Procedure, Year, and Place: hysterectomy 2009,2x c-sect,01/05/17-nadya findoplication w/biosyn suture-cleared by ,ganglion cyst r foot, colon resection november 2017, ivc filter 05/2017- argon(up to 3T) Hx Anesthesia Reactions: Yes - hard time waking up; low BP Infectious Disease History: No Infectious Disease History: Denies: Traveled Outside the [place] in Last 30 Days - Family History Known Family History: Positive: Hypertension, Other - NEGATIVE: Colon CA - Social History Alcohol Use: None Hx Substance Use: No Substance Use Type: Reports: None Hx Tobacco Use: No Smoking Status (MU): Never Smoked Tobacco Review of Systems Negative: Fever, Skin Diaphoresis Negative: Sore Throat Positive: Chest Pain - epigastric Negative: Shortness Of Breath Positive: Abdominal Pain - RLQ, Other - POSITIVE: cramping, bloating, appetite changes. Negative: Diarrhea, Nausea Genitourinary: Negative - urinary symptoms Positive: frequency - BMs Negative: Headache All Other Systems Reviewed And Are Negative: Yes Physical Exam - Summary Physical Exam Summary: Appearance: Well-appearing, Well-nourished, lying in bed comfortably Skin: Warm, dry, no obvious rash Eyes: sclera jaundice, no conjunctival pallor ENT: mucous membranes moist, pharynx appears normal Neck: Supple, nontender Respiratory: Clear to auscultation, no signs of respiratory distress Cardiovascular: Normal S1, S2. No murmurs. Normal distal pulses in tibial and radial bilaterally. Abdomen: Soft, mild RLQ and RUQ sided tenderness without peritoneal signs. , normal active bowel sounds present Musculoskeletal: Normal, Strength/ROM Intact Neurological: A&Ox3, awake and alert, mentation is normal, speech is fluent and appropriate Triage Information Reviewed: Yes Vital Signs On Initial Exam: Initial Vitals Temp Pulse Resp BP Pulse Ox 98.5 F 77 18 138/90 99 01/13/19 18:54 01/13/19 18:54 01/13/19 18:54 01/13/19 18:54 01/13/19 18:54 Vital Signs Reviewed: Yes Diagnostics - Vital Signs Vital Signs Temp Pulse Resp BP Pulse Ox 01/13/19 18:54 98.5 F 77 18 138/90 99 - Laboratory Result Diagrams: 01/14/19 05:40 01/14/19 05:40 Lab Statement: Any lab studies that have been ordered have been reviewed, and results considered in the medical decision making process. - Ultrasound Liver US Ultrasound Interpretation Completed By: Radiologist Summary of Ultrasound Findings: 1. Post cholecystectomy. 2. No intra-or extrahepatic biliary dilatation. 3. Limited visualization of pancreas secondary to bowel gas. 4. Heterogeneous hyperechoic focus again noted in the posterior aspect of the. right lobe of the liver, slightly less prominent when compared to prior. ultrasound. This corresponds to area of hepatic lesion and surgical change on. CT dated 12/24/18. 5. Pancreatic body and tail obscured by bowel gas. ED Physician has reviewed this report. Re-Evaluation - Re-Evaluation First Eval Re-Evaluation Time: 23:40 Change: Unchanged Comment: Pt will be admitted to [facility] per Dr. Emerson's request for her to receive a full work-up and she is agreeable. Abdominal Pain Fem Course/Dx - Course Course Of Treatment: This patient is a 43 year old F presenting to [facility] accompanied by her friend with a chief complaint of increased jaundice from colon and liver cancer for around 2 weeks. She states that her labs have not been consistent with the imaging reports and has a bili of 5.0. She has a pertinent Hx of sepsis, and colon and liver cancer. Her PE shows that she has mild RLQ and RUQ tenderness without peritoneal signs and her sclera are jaundiced. She has abnormal lab values in Total bilibrium 8.80, AST, Alkaline Phosphatase, Total Protein. Her liver US showed 1. Post cholecystectomy. 2. No intra-or extrahepatic biliary dilatation. 3. Limited visualization of pancreas secondary to bowel gas. 4. Heterogeneous hyperechoic focus again noted in the posterior aspect of the right lobe of the liver, slightly less prominent when compared to prior ultrasound. This corresponds to area of hepatic lesion and surgical change on CT dated 12/24/18. 5. Pancreatic body and tail obscured by bowel gas. Dr. Emerson recommended admitting the pt for a full work-up at 2337. She will be admitted to [facility] with a Dx of Jaundice and metastatic colon cancer. - Diagnoses Provider Diagnoses: Metastatic colon cancer to liver, Jaundice - Provider Notifications Discussed Care Of Patient With: Arthur Emerson Time Discussed With Above Provider: 23:37 Instructed by Provider To: Admit As Inpatient - Dr. Emerson, Gastroenterology recomended admitting the pt for a full work-up. Admit/Transition Orders Completed By ED Provider: Yes Discharge - Sign-Out/Discharge Documenting (check all that apply): Patient Departure - admitted Patient Received Moderate/Deep Sedation with Procedure: No - Discharge Plan Condition: Stable Disposition: ADMITTED TO [facility] - Billing Disposition and Condition Condition: STABLE Disposition: Admitted to [facility] - Attestation Statements Document Initiated by Scribe: Yes Documenting Scribe: Barak Smith Provider For Whom Scribe is Documenting (Include Credential): Javier Willson MD Scribe Attestation: Barak Hillman, scribed for Javier Willson MD on 01/14/19 at 0612. Scribe Documentation Reviewed: Yes Provider Attestation: The documentation as recorded by the Barka hearn accurately reflects the service I personally performed and the decisions made by me, Javier Willson MD Status of Scribkrista Document: Viewed
[2019-01-13 20:00] LABS: ABS Eosinophils 0.1 10^3/ul (0-0.6); ABS Lymphocytes 1.3 10^3/ul (1.0-4.8); ABS Monocytes 0.8 10^3/ul (0-0.8); ABS Neutrophils 3.6 10^3/ul (1.5-7.7); Eosinophil % 2.3 %; Hematocrit 42 % (35-47); Hemoglobin 14.3 g/dL (12.0-16.0); Lymphocyte % 21.9 %; Mean Corpuscular HGB Conc 35 g/dL (31-36); Mean Corpuscular Hemoglobin 34 pg (27-31); Mean Corpuscular Volume 97 fL (80-97); Mean Platelet Volume 10.4 fL (7.4-10.4); Nucleated Red Blood Cells % 0.1; Platelet Count 105 10^3/uL (150-450); Red Blood Count 4.27 10^6 /uL (3.70-4.87); Red Cell Distribution Width 19 % (10-15); White Blood Count 5.9 10^3/uL (3.5-10.8)
[2019-01-13 20:10] LABS: Activated Partial Thrombo Time 73.2 seconds (26.0-38.0); INR 1.09 (0.82-1.09)
[2019-01-13 20:17] LABS: C Reactive Protein 6.77 mg/L (<8.01)
[2019-01-13 20:18] LABS: Albumin 3.9 g/dL (3.2-5.2); Albumin/Globulin Ratio 1.6 (1-3); BUN/Creatinine Ratio 14.5 (8-20); EGFR African American 128.4 (>60); EGFR Non-African American 106.1 (>60); Globulin 2.4 g/dL (2-4); Potassium 3.7 mmol/L (3.5-5.0); Total Bilirubin 8.8 mg/dL (0.2-1.0); Total Protein 6.3 g/dL (6.4-8.9)
[2019-01-13] MEDS ORDERED: LORazepam TAB(*) 1 MG PO ONE (23:44)
[2019-01-14 00:04] LABS: Total Bilirubin 8.7 mg/dL (0.2-1.0)
--- NOTE | 2019-01-14 02:07 | HP ---
History of Present Illness - History of Present Illness Reason for Visit: Worsening Jaundice History of Present Illness: This is a 42-year-old female with past medical history of colon cancer diagnosed in 2017 status post surgery and chemotherapy with liver metastases with a biliary stent placed on 11/30/17 in [place] later removed 8 weeks later. Has been on chemo for over two years last chemo 2 weeks ago. Here due to worsening jaundice on recommendation by Dr. Flores. Patient has accompanying generalized malaise, abdominal pain, nausea, diarrhea and severe itching. She says her jaundice has worsened since last but her skin was more noticeable the last few days and she spoke with her Dr. Flores [covering onc] who suggested that she follow up in ER if it worsens. PAST MEDICAL HISTORY: 1. Metastatic colon cancer diagnosed in 2016, followed by Dr. Abdul. She has had surgery including a colon resection on 11/10/17 and she also had a biliary stent placed secondary to liver mets with obstruction on 11/30/17 in [place]. Removed after 8 weeks. Has been on chemo since then last chemo was 2 weeks ago. 2. Chronic fatigue syndrome. 3. GERD. 4. History of interstitial cystitis. 5. History of PE in April 2017. PAST SURGICAL HISTORY: 1. History of cholecystectomy. 2. . 3. Hysterectomy and right oopherectomy 2009. 4. Colon resection along with left oopherectomy on 11/10/17. 5. Biliarty stent placement November 2017. - Past Family History Family History: Cancer - Dad side had Colon Ca. Multiple family members with breast Ca. Grandfather had esophageal Ca., Other - Alziemer's - Past Social History Smoke: No Alcohol: None Drugs: None Review of Systems - Measurements Intake and Output: Intake and Output Last 24 Hours 01/11/19 01/12/19 01/13/19 01/14/19 06:59 06:59 06:59 06:59 Weight 155 lb - Review of Systems Constitutional Symptoms: Positive: Weakness, Fatigue Negative: Weight Gain, Weight Loss, Fever Dermatology: Negative: Rash Eyes: Negative: Change in Vision Pulmonary: Positive: Shortness of Breath Negative: Cough Cardiology: Positive: Chest Pain, Shortness of Breath Gastroenterology: Positive: Abdominal Pain, Nausea, Diarrhea, Other - Severe itching. Objective Vital Signs - 8 hr 01/13/19 01/13/19 01/13/19 18:54 20:02 20:04 Temperature 98.5 F Pulse Rate 77 75 75 Respiratory 18 Rate Blood Pressure 138/90 118/83 (mmHg) O2 Sat by Pulse 99 99 98 Oximetry 01/13/19 01/13/19 01/13/19 21:00 21:02 21:32 Temperature Pulse Rate 69 68 65 Respiratory Rate Blood Pressure 115/72 117/74 (mmHg) O2 Sat by Pulse 98 100 100 Oximetry 01/13/19 01/13/19 01/13/19 22:00 22:02 22:32 Temperature Pulse Rate 70 70 67 Respiratory Rate Blood Pressure 126/69 117/75 (mmHg) O2 Sat by Pulse 98 98 97 Oximetry 01/13/19 01/13/19 01/13/19 23:00 23:02 23:32 Temperature Pulse Rate 70 68 66 Respiratory Rate Blood Pressure 131/84 128/80 (mmHg) O2 Sat by Pulse 98 98 97 Oximetry 01/13/19 23:56 Temperature Pulse Rate Respiratory 18 Rate Blood Pressure (mmHg) O2 Sat by Pulse Oximetry Oxygen Devices in Use Now: None Eyes: PERRLA - Scleral Icterus noted. Ears/Nose/Mouth/Throat: NL Teeth, Lips, Gums, - - Sublingual jaundice Neck: NL Appearance and Movements; NL JVP, - - Right anterior chest chemo-port. Respiratory: Clear to Auscultation Cardiovascular: NL Sounds; No Murmurs; No JVD, RRR, No Edema Abdominal: - - Multiple surgical scars. Soft minimally tender on the right upper quadrant. Extremities: No Edema Skin: No Rash or Ulcers Neurological: Alert and Oriented x 3, NL Sensation, NL Muscle Strength and Tone Lines/Tubes/Other Access: Clean, Dry and Intact Other Access - Right Chemo-port Nutrition: Taking PO's Result Diagrams: 01/13/19 19:50 01/13/19 19:50 Diagnostic Imaging: US Abdomen Limited, Right Upper Quadrant IMPRESSION: 1. Post cholecystectomy. 2. No intra-or extrahepatic biliary dilatation. 3. Limited visualization of pancreas secondary to bowel gas. 4. Heterogeneous hyperechoic focus again noted in the posterior aspect of the right lobe of the liver, slightly less prominent when compared to prior ultrasound. This corresponds to area of hepatic lesion and surgical change on CT dated 12/24/18. 5. Pancreatic body and tail obscured by bowel gas. Assess/Plan/Problems-Billing Assessment: - Patient Problems (1) Jaundice Current Visit: Yes Status: Acute Code(s): R17 - UNSPECIFIED JAUNDICE SNOMED Code(s): 79588519 Comment: Unclear etiology. Spoke with Dr. Arthur Emerson who suggested no need to transfer for any emergent ERCP given no fever. Will check MRCP and consult GI. Add Cholestyramine to see if it helps with itching in the mean time. (2) Metastatic colon cancer to liver Current Visit: No Status: Acute Code(s): C18.9 - MALIGNANT NEOPLASM OF COLON , UNSPECIFIED; C78.7 - SECONDARY MALIG NEOPLASM OF LIVER AND INTRAHEPATIC BILE DUCT SNOMED Code(s): 186018730 Comment: S/P Surgery and on chemo. Follow up care per Dr. Abdul. (3) Chest pain Current Visit: Yes Status: Acute Code(s): R07.9 - CHEST PAIN, UNSPECIFIED SNOMED Code(s): 54858078 Comment: Shun atypical due to her malignancy however will get serial cardiac enzymes. EKG/CXR. And monitor on telemetry. (4) DVT prophylaxis Current Visit: Yes Status: Acute Code(s): Z29.9 - ENCOUNTER FOR PROPHYLACTIC MEASURES, UNSPECIFIED SNOMED Code(s): 673356126 Comment: Lovenox. Allergies/Medications Medication: Fluticasone NASAL * [Flonase *] 2 spray BOTH NARES DAILY PRN 01/30/17 [History Confirmed 01/13/19] Lidocaine/PRILOCAINE* [Emla*] 1 applic .SEE ORDER SEE INSTRUCTIONS 05/16/17 [ History Confirmed 01/13/19] Metoclopramide TAB* [Reglan TAB*] 10 mg PO Q6H PRN 05/16/17 [History Confirmed 01/13/19] Ondansetron TAB* [Zofran 4 MG Tab*] 4 mg PO Q6H PRN 05/17/17 [History Confirmed 01/13/19] Ascorbic Acid TAB* [Vitamin C TAB*] 1,000 mg PO DAILY 12/10/17 [History Confirmed 01/13/19] Ibuprofen TAB* [Advil TAB*] 200 mg PO Q6H PRN 12/10/17 [History Confirmed ] LORazepam TAB(*) [Ativan 1 MG TAB (*)] 1 mg PO Q12H PRN 12/10/17 [History Confirmed 01/13/19] Omeprazole CAP (NF) [Prilosec CAP* 20 MG] 40 mg PO DAILY 12/10/17 [History Confirmed 01/13/19] Potassium Chlor TAB* [Klor Con ER TAB*] 20 meq PO DAILY 12/10/17 [History Confirmed 01/13/19] Ranitidine TAB (NF) [Zantac TAB (NF)] 300 mg PO DAILY 12/10/17 [History Confirmed 01/13/19] Vitamin E CAP* 1,000 unit PO DAILY 12/10/17 [History Confirmed 01/13/19] fentaNYL PATCH 25 MCG/HR* [Duragesic PATCH 25 Mcg/Hr*] 25 mcg TRANSDERM Q72H # 10 patch MDD 25 12/13/17 [Rx Confirmed 01/13/19] Calcium/Magnesium [Calcium with Magnesium Tab] 1 each PO DAILY 05/01/18 [ History Confirmed 01/13/19] Capecitabine (NF) [Xeloda (NF)] 500 mg PO BID 01/13/19 [History Confirmed ] Allergies/Adverse Reactions: Allergies Allergy/AdvReac Type Severity Reaction Status Date / Time nitrofurantoin Allergy Severe Palpitation Verified 01/13/19 19:00 s topiramate Allergy Severe Altered Verified 01/13/19 19:00 Mental Status butorphanol Allergy Intermediate Hallucinati Verified 01/13/19 19:00 ons estradiol Allergy Intermediate Difficulty Verified 01/13/19 19:00 Breathing ketorolac Allergy Intermediate Difficulty Verified 01/13/19 19:00 Breathing oxycodone [From Percocet] Allergy Intermediate Difficulty Verified 01/13/19 19: 00 Breathing cetirizine [From Zyrtec] Allergy Unknown See Comment Verified 01/13/19 19:00 diphenhydramine Allergy Unknown Verified 01/13/19 19:00 [From Benadryl] Reaction Details prochlorperazine Allergy Unknown Verified 01/13/19 19:00 [From Compazine] Reaction Details
[2019-01-14] MEDS: NS 0.9% 1000 ML** 1,000 ML IV SCH ×2 (03:56→19:03)
[2019-01-14 04:12] LABS: Urine Appearance Clear; Urine Bacteria Absent (Absent); Urine Bilirubin 2+ (Negative); Urine Blood 1+ (Negative); Urine Color Amber; Urine Glucose Negative (Negative); Urine Ketones Negative (Negative); Urine Nitrite Negative (Negative); Urine Protein Negative (Negative); Urine Red Blood Cell Trace(0-2/hpf) (Absent); Urine Specific Gravity 1.018 (1.010-1.030); Urine Squamous Epithelial Cell Present (Absent); Urine Urobilinogen Positive (Negative); Urine White Blood Cell Trace(0-5/hpf) (Absent)
[2019-01-14 06:02] LABS: ABS Eosinophils 0.2 10^3/ul (0-0.6); ABS Lymphocytes 1.3 10^3/ul (1.0-4.8); ABS Monocytes 0.6 10^3/ul (0-0.8); ABS Neutrophils 2.6 10^3/ul (1.5-7.7); Eosinophil % 3.3 %; Hematocrit 41 % (35-47); Hemoglobin 13.8 g/dL (12.0-16.0); Lymphocyte % 27.8 %; Mean Corpuscular HGB Conc 34 g/dL (31-36); Mean Corpuscular Hemoglobin 33 pg (27-31); Mean Corpuscular Volume 97 fL (80-97); Mean Platelet Volume 9.8 fL (7.4-10.4); Platelet Count 84 10^3/uL (150-450); Red Blood Count 4.21 10^6 /uL (3.70-4.87); Red Cell Distribution Width 19 % (10-15); White Blood Count 4.6 10^3/uL (3.5-10.8)
[2019-01-14 06:12] LABS: ALT 51 U/L (7-52); AST 68 U/L (13-39); Albumin 3.5 g/dL (3.2-5.2); Albumin/Globulin Ratio 1.5 (1-3); Alkaline Phosphatase 309 U/L (34-104); Anion Gap 5 mmol/L (2-11); BUN/Creatinine Ratio 15.4 (8-20); Blood Urea Nitrogen 10 mg/dL (6-24); CO2 Carbon Dioxide 29 mmol/L (22-32); Calcium 9.7 mg/dL (8.6-10.3); Chloride 105 mmol/L (101-111); EGFR African American 121.5 (>60); EGFR Non-African American 100.4 (>60); Globulin 2.4 g/dL (2-4); Glucose 97 mg/dL (70-100); Indirect Bilirubin 3.4 mg/dL (0.3-1.0); Potassium 3.6 mmol/L (3.5-5.0); Sodium 139 mmol/L (135-145); Total Protein 5.9 g/dL (6.4-8.9)
[2019-01-14] MEDS: Cholestyramine Resin* 4 GM POWDER PO SCH ×2 (08:12→20:54)
[2019-01-14] MEDS: Enoxaparin(*) 40 MG/0.4 ML SYR SUBCUT SCH (08:12)
[2019-01-14] MEDS ORDERED: hydrOXYzine HCL TAB* 25 MG PO PRN (09:35)
--- NOTE | 2019-01-14 09:48 | PN ---
Progress Note - Progress Note Date of Service: 01/14/19 SOAP: Subjective: [Admitted overnight with worsening jaundice. Denies fever. Occasional R sided abd pain. No constipation or diarrhea. She was seen in the oncology clinic last week with increasing Tbili, liver US and CT showed no obstruction. Outpt MRCP was pending for today.] Objective: [ Vital Signs: Temp Pulse Resp BP Pulse Ox 97.6 F 64 16 103/71 100 01/14/19 07:15 01/14/19 07:15 01/14/19 07:15 01/14/19 07:15 01/14/19 07:15 Cholestyramine Resin (Questran*) 4 gm PO BID [facility] Last Admin: 01/14/19 08:12 Dose: 4 gm Enoxaparin Sodium (Lovenox(*)) 40 mg SUBCUT Q24H [facility] Last Admin: 01/14/19 08:12 Dose: 40 mg Hydroxyzine HCl (Atarax Tab*) 25 mg PO Q4H PRN PRN Reason: itching Sodium Chloride (Ns 0.9% 1000 Ml) 1,000 mls @ 75 mls/hr IV PER RATE [facility] Last Admin: 01/14/19 03:56 Dose: 75 mls/hr Laboratory Results - last 24 hr 01/13/19 01/13/19 01/13/19 19:50 19:50 19:50 WBC 5.9 RBC 4.27 Hgb 14.3 Hct 42 MCV 97 MCH 34 H MCHC 35 RDW 19 H Plt Count 105 L MPV 10.4 Neut % (Auto) 61.4 Lymph % (Auto) 21.9 Centre % (Auto) 14.1 Eos % (Auto) 2.3 Baso % (Auto) 0.3 Absolute Neuts (auto) 3.6 Absolute Lymphs (auto) 1.3 Absolute Monos (auto) 0.8 Absolute Eos (auto) 0.1 Absolute Basos (auto) 0.0 Absolute Nucleated RBC 0.0 Nucleated RBC % 0.1 INR (Anticoag Therapy) 1.09 APTT 73.2 H Sodium 137 Potassium 3.7 Chloride 104 Carbon Dioxide 25 Anion Gap 8 BUN 9 Creatinine 0.62 Est GFR ( Amer) 128.4 Est GFR (Non-Af Amer) 106.1 BUN/Creatinine Ratio 14.5 Glucose 115 H Calcium 10.0 Total Bilirubin 8.80 H Direct Bilirubin Indirect Bilirubin AST 61 H ALT 52 Alkaline Phosphatase 297 H Troponin I C-Reactive Protein Total Protein 6.3 L Albumin 3.9 Globulin 2.4 Albumin/Globulin Ratio 1.6 Urine Color Urine Appearance Urine pH Ur Specific Newton Urine Protein Urine Ketones Urine Blood Urine Nitrate Urine Bilirubin Urine Urobilinogen Ur Leukocyte Esterase Urine WBC (Auto) Urine RBC (Auto) Ur Squamous Epith Cells Urine Bacteria Urine Glucose 01/13/19 01/14/19 01/14/19 19:50 00:00 02:24 WBC RBC Hgb Hct MCV MCH MCHC RDW Plt Count MPV Neut % (Auto) Lymph % (Auto) Centre % (Auto) Eos % (Auto) Baso % (Auto) Absolute Neuts (auto) Absolute Lymphs (auto) Absolute Monos (auto) Absolute Eos (auto) Absolute Basos (auto) Absolute Nucleated RBC Nucleated RBC % INR (Anticoag Therapy) APTT Sodium Potassium Chloride Carbon Dioxide Anion Gap BUN Creatinine Est GFR ( Amer) Est GFR (Non-Af Amer) BUN/Creatinine Ratio Glucose Calcium Total Bilirubin 8.70 H Direct Bilirubin 5.70 H Indirect Bilirubin 3.0 H AST ALT Alkaline Phosphatase Troponin I 0.00 C-Reactive Protein 6.77 Total Protein Albumin Globulin Albumin/Globulin Ratio Urine Color Bri Urine Appearance Clear Urine pH 5.0 Ur Specific Newton 1.018 Urine Protein Negative Urine Ketones Negative Urine Blood 1+ A Urine Nitrate Negative Urine Bilirubin 2+ A Urine Urobilinogen Positive A Ur Leukocyte Esterase Negative Urine WBC (Auto) Trace(0-5/hpf) Urine RBC (Auto) Trace(0-2/hpf) Ur Squamous Epith Cells Present A Urine Bacteria Absent Urine Glucose Negative 01/14/19 01/14/19 05:40 05:40 WBC 4.6 RBC 4.21 Hgb 13.8 Hct 41 MCV 97 MCH 33 H MCHC 34 RDW 19 H Plt Count 84 L MPV 9.8 Neut % (Auto) 55.9 Lymph % (Auto) 27.8 Centre % (Auto) 12.4 Eos % (Auto) 3.3 Baso % (Auto) 0.6 Absolute Neuts (auto) 2.6 Absolute Lymphs (auto) 1.3 Absolute Monos (auto) 0.6 Absolute Eos (auto) 0.2 Absolute Basos (auto) 0.0 Absolute Nucleated RBC 0.0 Nucleated RBC % 0.0 INR (Anticoag Therapy) APTT Sodium 139 Potassium 3.6 Chloride 105 Carbon Dioxide 29 Anion Gap 5 BUN 10 Creatinine 0.65 Est GFR ( Amer) 121.5 Est GFR (Non-Af Amer) 100.4 BUN/Creatinine Ratio 15.4 Glucose 97 Calcium 9.7 Total Bilirubin 9.40 H Direct Bilirubin 6.00 H Indirect Bilirubin 3.4 H AST 68 H ALT 51 Alkaline Phosphatase 309 H Troponin I 0.00 C-Reactive Protein Total Protein 5.9 L Albumin 3.5 Globulin 2.4 Albumin/Globulin Ratio 1.5 Urine Color Urine Appearance Urine pH Ur Specific Newton Urine Protein Urine Ketones Urine Blood Urine Nitrate Urine Bilirubin Urine Urobilinogen Ur Leukocyte Esterase Urine WBC (Auto) Urine RBC (Auto) Ur Squamous Epith Cells Urine Bacteria Urine Glucose Exam: Gen: Chronically ill appearing, but in NAD HEENT: MMM, scleral icterus CV: RRR, no m/r/g Resp: CTA, no w/c/r Abd: soft, some TTP in RLQ Ext: no edema Skin: jaundice] Assessment: [43 yo female with metastatic colon cancer who has been treated with Xeloda/ avastin with recent imaging showing improvement/stable dz who suddenly developed isolated hyperbilirubinemia. Repeat labs shows Tbili continuing to climb. Liver US showed no obstruction and liver lesion which had decreased in size. Xeloda has been held since 01/04 and last avastin 01/02. Plan: [1. Jaundice - mostly direct hyperbilirubinemia with only mild transaminitis c/w a pattern of obstruction - MRCP pending for later today, but recent liver US and CT have not shown any disease progression or biliary dilitation - if MRCP is also negative for area of obstruction this may represent infiltrative spread of the disease as opposed to focal obstruction - will repeat CEA, also check amylase/lipase - no evidence of infection at this time - manage itching with cholestyramine and hydroxyzine 2. Metastatic colon CA - therapy on hold secondary to above Dispo: pending MRCP results
[2019-01-14 10:42] LABS: Amylase 33 U/L (29-103)
[2019-01-14 11:32] LABS: Carcinoembryonic Antigen 52.5 ng/mL (0.1-5.0)
--- NOTE | 2019-01-14 15:22 | CONS ---
CONSULTATION REPORT: DATE OF CONSULT: 01/14/19 REQUESTING PHYSICIAN: REBECCA De La Rosa. INDICATION: Increased liver function test. HISTORY OF PRESENT ILLNESS: Mrs. Garcia is a very pleasant 43-year-old female who was diagnosed with metastatic colorectal cancer in 2017. She had mets to her liver. She did have a bile duct stent placed in 2018 at [facility]. It was removed approximately 8 weeks later. She also had surgery on 11/24/18 on her colon. She has been on chemo since that time. Her last chemo was approximately 2 weeks ago. She has been noticing progressively worsening itching and jaundice. She has been following up with the Oncology Clinic regarding worsening liver function tests. She came to the emergency room last night because of worsening itching. She does have mild right lower quadrant abdominal pain. She denies any nausea. No vomiting, no fevers. Since yesterday, she states that her stools seem a little more pale. PAST MEDICAL HISTORY: Please see the HPI. She also has chronic fatigue, GERD, interstitial cystitis, and PE. Positive for breast cancer, colon cancer, esophageal cancer, and Alzheimer's. PAST SURGICAL HISTORY: Includes cholecystectomy, , hysterectomy, partial colectomy. SOCIAL HISTORY: She denies any tobacco or alcohol. REVIEW OF SYSTEMS: Twelve systems were reviewed, and other than that mentioned in the HPI, were unremarkable. MEDICATIONS: The MAR was reviewed; no new meds PHYSICAL EXAM: Temperature is 98.3, blood pressure is 106/72, pulse of 64, respiratory rate 16, and O2 sat is 100%. General: Chronically ill-appearing female, appears slightly older than her stated age. Alert, oriented, pleasant. Fluent. HEENT: Sclerae are icteric. Conjunctivae are not pale. Mucous membranes are moist without lesions, ulcers, or exudate. Neck is supple. Trachea is midline. Head is normocephalic, atraumatic. Heart: Regular rate and rhythm. No murmurs, rubs, or gallops. Lungs: Clear to auscultation bilaterally. No wheezes, rales, or rhonchi. Abdomen: Positive bowel sounds, soft. Very mild right lower quadrant tenderness. No rebound. No guarding. Skin is warm and dry and jaundiced. DIAGNOSTIC STUDIES/LAB DATA: Labs of note: Sodium is 139, BUN is 10, creatinine is 0.65, bilirubin has gone from 8.8 to 9.4, direct bilirubin went from 5.7 to 6, AST is 68; up from 61, ALT is 51, alk phos is 309; up from 297, lipase is less than 10. INR is 1.09. White count is 4.6, hemoglobin is 13.8, platelets of 84. She does have a liver ultrasound which reveals postcholecystectomy. No intra or extrahepatic biliary ductal dilatation. ASSESSMENT AND PLAN: This is a very pleasant 43-year-old female with a history of metastatic colon cancer who presents with worsening pruritus and increased liver function tests. She is scheduled for an MRCP in a few hours from now to rule out any biliary obstruction. The MRCP is going to be very helpful. If it does not show any biliary obstruction, the next leading etiology would be tumor infiltration of her liver. At this point, we will await the results of the MRCP and further workup will be determined by it. GI services will continue to follow along. [id number]/[facility] #: [id number] BRIAN
[2019-01-15 06:13] LABS: ABS Eosinophils 0.1 10^3/ul (0-0.6); ABS Monocytes 0.5 10^3/ul (0-0.8); Eosinophil % 2.4 %; Hematocrit 40 % (35-47); Hemoglobin 13.8 g/dL (12.0-16.0); Lymphocyte % 20.9 %; Mean Corpuscular HGB Conc 34 g/dL (31-36); Mean Corpuscular Hemoglobin 33 pg (27-31); Mean Corpuscular Volume 97 fL (80-97); Mean Platelet Volume 9.9 fL (7.4-10.4); Nucleated Red Blood Cells % 0.1; Platelet Count 80 10^3/uL (150-450); Red Blood Count 4.14 10^6 /uL (3.70-4.87); Red Cell Distribution Width 18 % (10-15); White Blood Count 4.6 10^3/uL (3.5-10.8)
[2019-01-15 06:29] LABS: Albumin 3.3 g/dL (3.2-5.2); Albumin/Globulin Ratio 1.3 (1-3); BUN/Creatinine Ratio 12.9 (8-20); Calcium 9.1 mg/dL (8.6-10.3); EGFR African American 128.4 (>60); EGFR Non-African American 106.1 (>60); Globulin 2.5 g/dL (2-4); Indirect Bilirubin 3.3 mg/dL (0.3-1.0); Potassium 4.1 mmol/L (3.5-5.0); Total Bilirubin 9.3 mg/dL (0.2-1.0); Total Protein 5.8 g/dL (6.4-8.9)
[2019-01-15] MEDS: NS 0.9% 1000 ML** 1,000 ML IV SCH (08:33)
[2019-01-15] MEDS: Cholestyramine Resin* 4 GM POWDER PO SCH (08:35)
[2019-01-15] MEDS: Enoxaparin(*) 40 MG/0.4 ML SYR SUBCUT SCH (08:35)
--- NOTE | 2019-01-15 09:10 | PN ---
Progress Note - Progress Note Date of Service: 01/15/19 SOAP: Subjective: []Developed jaundice last week. Over weekend abdominal pain, mild nausea and felt dizzy. No fevers. ER on Monday and T caterina > 8.0. Admission, MRCP done yesterday. Cholestyramine Resin (Questran*) 4 gm PO BID [facility] Last Admin: 01/15/19 08:35 Dose: 4 gm Enoxaparin Sodium (Lovenox(*)) 40 mg SUBCUT Q24H [facility] Last Admin: 01/15/19 08:35 Dose: 40 mg Hydroxyzine HCl (Atarax Tab*) 25 mg PO Q4H PRN PRN Reason: itching Last Admin: 01/14/19 20:54 Dose: 25 mg Sodium Chloride (Ns 0.9% 1000 Ml) 1,000 mls @ 75 mls/hr IV PER RATE [facility] Last Admin: 01/15/19 08:33 Dose: 75 mls/hr Objective: []Vital Signs Temp Pulse Resp BP Pulse Ox 97.8 F 66 16 109/68 99 01/15/19 07:14 01/15/19 08:35 01/15/19 07:14 01/15/19 08:35 01/15/19 07:14 Exam: Gen: no distress. HEENT: MMM, scleral icterus CV: RRR, no m/r/g Resp: CTA, no w/c/r Abd: soft, some TTP in RLQ no rebound or guarding Ext: no edema Skin: jaundice CEA 52, T caterina 9.3 WBC 4.9 MRCP 01/14/19: There is abrupt central termination of R,L and common hepatic ducts. Common bile duct is patent. Reviewed in detail with radiology. CT A/P: Stable superior liver lesions, 1.5 cm, no progression and no clear LAD. Assessment: [43 yo female with metastatic colon cancer who has been treated with Xeloda/ avastin with recent imaging showing improvement/stable dz who suddenly developed isolated hyperbilirubinemia. There is central obstruction on MRCP of right, left and common hepatic duct. No clear mass. Ddx: babatunde-hepatic LN causing obstruction, scaring in duct, small hepatic lesion not seen on CT or MRI. Plan: [1. Jaundice - Case discussed with Dr. Gifford and will determine if stent can be placed in [place] [facility], if not she would like to go to [place]. - no evidence of infection at this time - manage itching with cholestyramine and hydroxyzine 2. Metastatic colon CA - Likely progressive disease but would like to follow CEA after resolution of obstruction. - Last Avastin on 01/02/19, chemotherapy on hold. 3. Thrombocytopenia. From chemotherapy, consumption, follow. 4. Disp pending review by GI, discharge later today if possible.
[2019-01-15] MEDS ORDERED: Pantoprazole TAB * 40 MG TAB PO SCH (11:00)
[2019-01-15] MEDS ORDERED: Calcium Carbonate CHEW TAB* 500 MG (TUMS) PO PRN (13:12)
[2019-01-15] MEDS ORDERED: Ondansetron INJ* 2 MG/ML VIAL IV PRN (13:12)
[2019-01-15 20:25] VITALS: BP 118/74
== END 2019-01-15 20:20 | disposition home or self-care (01) | DRG 281 ==
LOC: ED 18:52 → MED 01-14 02:23
PROVIDERS: ADMIT Internal Medicine; ATTEND Internal Medicine Hematology & Oncology
DX: C78.7 Secondary malignant neoplasm of liver and intrahepatic bile duct (principal); R17 Unspecified jaundice; C18.9 Malignant neoplasm of colon, unspecified; R53.82 Chronic fatigue, unspecified; K21.9 Gastro-esophageal reflux disease without esophagitis; D69.6 Thrombocytopenia, unspecified; E80.6 Other disorders of bilirubin metabolism; R74.0 Nonspecific elevation of levels of transaminase and lactic acid dehydrogenase [LDH]; L29.9 Pruritus, unspecified; Z92.21 Personal history of antineoplastic chemotherapy; Z57.1 Occupational exposure to radiation; Z90.49 Acquired absence of other specified parts of digestive tract; Z86.711 Personal history of pulmonary embolism; Z90.710 Acquired absence of both cervix and uterus; Z90.721 Acquired absence of ovaries, unilateral; Z80.0 Family history of malignant neoplasm of digestive organs; Z80.3 Family history of malignant neoplasm of breast; Z82.0 Family history of epilepsy and other diseases of the nervous system; Z82.49 Family history of ischemic heart disease and other diseases of the circulatory system
CPT/HCPCS: 36415; 71046; 74181; 76376; 76705; 80048; 80053; 80076; 81003; 81015; 82150; 82247; 82248; 82378; 83690; 84484; 85025; 85610; 85730; 86140; 87086; 93005; 99232; 99239; 99284; A9270-GY; J1642; J1650; J2405